=== PATIENT | male | born 1955 | race Caucasian/White ===

== ENCOUNTER 2020-05-09 11:08 | Emergency (ER) | payer MEDICARE, MEDICAID ==
[~2020-05-09] VITALS: Ht 175.3 cm; Wt 104.0 kg
[2020-05-09] MEDS ORDERED: FAMOTIDINE 20 MG/2 ML VIAL IVP ONE (11:30)
[2020-05-09] MEDS ORDERED: ONDANSETRON PF 4 MG/2 ML VIAL. IVP ONE (11:30)
[2020-05-09] MEDS ORDERED: MORPHINE SULFATE 2 MG/ML VIAL. IV/SQ PRN (11:30)
[2020-05-09 11:34] LABS: BASO # 0.1 x10^3/uL (0.0-0.2); BASO % 1 % (0-3); EOS # 0.3 x10^3/uL (0.0-0.7); EOS % 5 % (0-3); HEMATOCRIT 45.1 % (39.0-53.0); HEMOGLOBIN 15.5 g/dL (13.0-17.5); LYMPH # 2.5 x10^3/uL (1.0-4.8); LYMPH % 37 % (24-48); MEAN CORPUSCULAR HEMOGLOBIN 31 pg (25-35); MEAN CORPUSCULAR HGB CONC 34 g/dL (31-37); MEAN CORPUSCULAR VOLUME 89 fL (79-100); MONO # 0.9 x10^3/uL (0.0-1.1); MONO % 13 % (0-9); NEUT % 45 % (31-73); PLATELET COUNT 212 x10^3/uL (140-400); RED BLOOD COUNT 5.05 x10^6/uL (4.30-5.70); RED CELL DISTRIBUTION WIDTH 14.7 % (11.5-14.5); WHITE BLOOD COUNT 6.7 x10^3/uL (4.0-11.0)
[2020-05-09 11:50] LABS: CALCIUM 8.8 mg/dL (8.5-10.1); CREATININE 0.8 mg/dL (0.7-1.3); GFR 96.4; POTASSIUM 4.2 mmol/L (3.5-5.1)
[2020-05-09 11:57] LABS: ALBUMIN 3.2 g/dL (3.4-5.0); ALBUMIN/GLOBULIN RATIO 0.8 (1.0-1.7); MAGNESIUM 1.9 mg/dL (1.8-2.4); TOTAL BILIRUBIN 0.4 mg/dL (0.2-1.0)
[2020-05-09] MEDS ORDERED: IOHEXOL 300 MG/ML 100ML VIAL. IV ONE (12:00)
[2020-05-09] MEDS ORDERED: CONTRAST GIVEN. MC PRN (12:15)
--- NOTE | 2020-05-09 12:40 | RAD ---
ADDENDUM #1 Question kirkpatrick appear in this report due to a dictation system bug. Please disregard these characters . Electronically signed by: Bobby Shaw MD (05/11/2020 9:18 AM) [facility]PELVIS W History: Abdominal pain. Comparison: None. Technique: CT of the abdomen and pelvis with intravenous contrast. Findings: Lung bases: Bibasilar atelectasis. Heavy coronary artery calcification. General abdomen: No ascites. No free air. Liver : Diffuse hypodensity compatible with steatosis. No focal lesions. No masses seen. Gallbladder/Biliary Tree: Decompressed gallbladder. No intrahepatic or extrahepatic biliary ductal di latation. Pancreas: Mild fatty atrophy. Spleen: Normal in size and attenuation. Adrenal Glands: Normal. Genitourinary: No hydronephrosis or hydroureter.?No renal masses identified. Normal partially distend ed bladder contour. Gastrointestinal: Well distended stomach without focal abnormality. Unremarkable small bowel without obstruction. Normal appendix. Normal colon. Lymph nodes: No lymphadenopathy. Vessels: Aortoiliac atherosclerosis. Pelvic Organs: Mildly enlarged prostate. Soft tissues: Unremarkable. Bones: No acute or aggressive lesions. Impression: 1. No acute abdominopelvic findings. 2. Hepatic steatosis. 3. Coronary artery calcification. 4. Mildly enlarged prostate. ------ Exposure: One or more of the following individualized dose reduction techniques were utilized for thi s examination: 1. Automated exposure control 2. Adjustment of the mA and/or kV according to patient size 3. Use of iterative reconstruction technique. Electronically signed by: Bobby Shaw MD (05/09/2020 12:38 PM) [facility]
[2020-05-09 12:47] VITALS: BP 167/76
--- NOTE | 2020-05-09 13:31 | PHYS DOC ---
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 Communication is difficult especially in terms of rating the pain describing the pain E TC. Review of Systems: Review of Systems: Constitutional: Denies fever or chills. [] Eyes: Denies change in visual acuity. [] HENT: Denies nasal congestion or sore throat. [] Respiratory: Denies cough or shortness of breath. [] Cardiovascular: Denies chest pain or edema. [] GI: Reports right-sided abdominal pain, denies nausea, vomiting, bloody stools or diarrhea. [] : Denies dysuria. [] Musculoskeletal: Denies back pain or joint pain. [] Integument: Denies rash. [] Neurologic: Denies headache, focal weakness or sensory changes. [] Psychiatric: Denies depression or anxiety. [] Heart Score: C/O Chest Pain: No Risk Factors: Risk Factors: DM, Current or recent (<one month) smoker, HTN, HLP, family history of CAD, obesity. Risk Scores: Score 0 - 3: 2.5% MACE over next 6 weeks - Discharge Home Score 4 - 6: 20.3% MACE over next 6 weeks - Admit for Clinical Observation Score 7 - 10: 72.7% MACE over next 6 weeks - Early Invasive Strategies Current Medications: Current Medications Medications (Trade) Dose Ordered Sig/Ramy Start Time Stop Time Status Last Admin Dose Admin Famotidine (Pepcid Vial) 20 mg 1X ONCE 05/09/20 11:30 05/09/20 11:31 DC Info (CONTRAST GIVEN -- Rx MONITORING) 1 each PRN DAILY PRN 05/09/20 12:15 05/11/20 12:14 Iohexol (Omnipaque 300 Mg/ml) 75 ml 1X ONCE 05/09/20 12:00 05/09/20 12:03 DC 05/09/20 12:28 75 ML Morphine Sulfate (Morphine Sulfate) 2 mg PRN Q15MIN PRN 05/09/20 11:30 05/10/20 11:29 Ondansetron HCl (Zofran) 4 mg 1X ONCE 05/09/20 11:30 05/09/20 11:31 DC Allergies: Allergies: Allergies Coded Allergies Type Severity Reaction Last Updated Verified No Known Medication Allergies Allergy Unknown 05/09/20 Yes Penicillins Adverse Reaction Intermediate nausea, vomiting 05/09/20 Yes Physical Exam: PE: Constitutional: Well developed, well nourished, no acute distress, non-toxic appearance. [] HENT: Normocephalic, atraumatic, bilateral external ears normal, oropharynx moist, no oral exudates, nose normal. [] Eyes: PERRLA, EOMI, conjunctiva normal, no discharge. [] Neck: Normal range of motion, no tenderness, supple, no stridor. [] Cardiovascular:Heart rate regular rhythm, no murmur [] Lungs & Thorax: Bilateral breath sounds clear to auscultation [] Abdomen: Rounded abdomen. Bowel sounds normal, soft, no right upper quadrant tenderness, slight tenderness on the right lower quadrant and right mid abdomen, no masses, no pulsatile masses. [] Skin: Warm, dry, no erythema, no rash. [] Back: No tenderness, no CVA tenderness. [] Extremities: No tenderness, no cyanosis, no clubbing, ROM intact, no edema. [] Neurologic: Alert and oriented X 3, normal motor function, normal sensory function, no focal deficits noted. [] Psychologic: Affect normal, judgement normal, mood normal. [] Current Patient Data: Labs: Laboratory Tests Test 05/09/20 11:22 White Blood Count 6.7 x10^3/uL (4.0-11.0) Red Blood Count 5.05 x10^6/uL (4.30-5.70) Hemoglobin 15.5 g/dL (13.0-17.5) Hematocrit 45.1 % (39.0-53.0) Mean Corpuscular Volume 89 fL (79-100) Mean Corpuscular Hemoglobin 31 pg (25-35) Mean Corpuscular Hemoglobin Concent 34 g/dL (31-37) Red Cell Distribution Width 14.7 % (11.5-14.5) H Platelet Count 212 x10^3/uL (140-400) Neutrophils (%) (Auto) 45 % (31-73) Lymphocytes (%) (Auto) 37 % (24-48) Monocytes (%) (Auto) 13 % (0-9) H Eosinophils (%) (Auto) 5 % (0-3) H Basophils (%) (Auto) 1 % (0-3) Neutrophils # (Auto) 3.0 x10^3/uL (1.8-7.7) Lymphocytes # (Auto) 2.5 x10^3/uL (1.0-4.8) Monocytes # (Auto) 0.9 x10^3/uL (0.0-1.1) Eosinophils # (Auto) 0.3 x10^3/uL (0.0-0.7) Basophils # (Auto) 0.1 x10^3/uL (0.0-0.2) Sodium Level 142 mmol/L (136-145) Potassium Level 4.2 mmol/L (3.5-5.1) Chloride Level 104 mmol/L (98-107) Carbon Dioxide Level 28 mmol/L (21-32) Anion Gap 10 (6-14) Blood Urea Nitrogen 14 mg/dL (8-26) Creatinine 0.8 mg/dL (0.7-1.3) Estimated GFR (Cockcroft-Gault) 96.4 BUN/Creatinine Ratio 18 (6-20) Glucose Level 254 mg/dL (70-99) H Calcium Level 8.8 mg/dL (8.5-10.1) Magnesium Level 1.9 mg/dL (1.8-2.4) Total Bilirubin 0.4 mg/dL (0.2-1.0) Aspartate Amino Transferase (AST) 33 U/L (15-37) Alanine Aminotransferase (ALT) 57 U/L (16-63) Alkaline Phosphatase 97 U/L (46-116) Troponin I Quantitative < 0.017 ng/mL (0.000-0.055) JV-Art-Q-Type Natriuretic Peptide 35 pg/mL (0-124) Total Protein 7.0 g/dL (6.4-8.2) Albumin 3.2 g/dL (3.4-5.0) L Albumin/Globulin Ratio 0.8 (1.0-1.7) L Lipase 131 U/L (73-393) Thyroid Stimulating Hormone (TSH) 1.733 uIU/mL (0.358-3.74) Laboratory Tests 05/09/20 11:22 Laboratory Tests 05/09/20 11:22 Vital Signs: Vital Signs Date Time Temp Pulse Resp B/P (MAP) Pulse Ox O2 Delivery O2 Flow Rate FiO2 05/09/20 12:47 60 18 167/76 (106) 96 Room Air 05/09/20 11:08 97.5 97.5 EKG: EK Interpreted by Dr. Miranda sinus rhythm HR 64 no STEMI [] Radiology/Procedures: Radiology/Procedures: []PROCEDURE: CT ABD PELV W/ IV CONTRST ONLY CT ABDOMEN+PELVIS W History: Abdominal pain. Comparison: None. Technique: CT of the abdomen and pelvis with intravenous contrast. Findings: Lung bases: Bibasilar atelectasis. Heavy coronary artery calcification. General abdomen: No ascites. No free air. Liver : Diffuse hypodensity compatible with steatosis. No focal lesions. No masses seen. Gallbladder/Biliary Tree: Decompressed gallbladder. No intrahepatic or ext rahepatic biliary ductal dilatation. Pancreas: Mild fatty atrophy. Spleen: Normal in size and attenuation. Adrenal Glands: Normal. Genitourinary: No hydronephrosis or hydroureter.?No renal masses identified. Normal partially distended bladder contour. Gastrointestinal: Well distended stomach without focal abnormality. Unremarkable small bowel without obstruction. Normal appendix. Normal colon. Lymph nodes: No lymphadenopathy. Vessels: Aortoiliac atherosclerosis. Pelvic Organs: Mildly enlarged prostate. Soft tissues: Unremarkable. Bones: No acute or aggressive lesions. Impression: 1. No acute abdominopelvic findings. 2. Hepatic steatosis. 3. Coronary artery calcification. 4. Mildly enlarged prostate. ------ Exposure: One or more of the following individualized dose reduction techniques were utilized for this examination: 1. Automated exposure control 2. Adjustment of the mA and/or kV according to patient size 3. Use of iterative reconstruction technique. Electronically signed by: Bobby Kumar MD (05/09/2020 12:38 PM) [facility] DICTATED and SIGNED BY: BOBBY KUMAR MD DATE: 05/09/20 [id number] 0 Course & Med Decision Making: Course & Med Decision Making Pertinent Labs and Imaging studies reviewed. (See chart for details) This is a 65-year-old male patient presented to the ED today complaining of right sided abdominal pain. Patient has a history of CVA with right hemiplegia and expressive aphasia. CBC CMP with no acute findings. CT of the abdomen and pelvic is negative for any acute findings. UA is negative. Discharge back to the group home. Dragon Disclaimer: Dragon Disclaimer: This electronic medical record was generated, in whole or in part, using a voice recognition dictation system. Departure Departure Impression: Primary Impression: Abdominal pain Qualified Codes: R10.31 - Right lower quadrant pain Disposition: 01 DC HOME SELF CARE/HOMELESS Condition: STABLE Referrals: ADIS ZAVALA MD (PCP) follow up next week Patient Instructions: Abdominal Pain Additional Instructions: You were seen for abdominal pain. Your work-up in the emergency room including lab work, urine, CAT scan are negative for any acute findings. Please follow-up with your primary care doctor MICKEY KAM APRN May 09, 2020 13:31
[2020-05-09 14:50] LABS: BILIRUBIN,URINE NEGATIVE (NEG); CLARITY,URINE CLEAR; COLOR,URINE YELLOW; NITRITE,URINE NEGATIVE (NEG); PH,URINE 6.5 (<5.0-8.0); PROTEIN,URINE NEGATIVE (NEG-TRACE)
[2020-05-09 15:09] LABS: BACTERIA,URINE 0 /HPF (0-FEW); RBC,URINE OCC /HPF (0-2); WBC,URINE OCC /HPF (0-4)
== END 2020-05-09 18:48 | disposition home or self-care (01) ==
LOC: ER 11:08
DX: R10.31 Right lower quadrant pain (principal); K76.0 Fatty (change of) liver, not elsewhere classified; N40.0 Benign prostatic hyperplasia without lower urinary tract symptoms; E78.00 Pure hypercholesterolemia, unspecified; I10 Essential (primary) hypertension; Z86.73 Personal history of transient ischemic attack (TIA), and cerebral infarction without residual deficits; Z88.0 Allergy status to penicillin
CPT/HCPCS: 36415; 74177; 80053; 81001; 83690; 83735; 83880; 84443; 84484; 85025; 93005; 99285; Q9967

== ENCOUNTER 2020-07-26 09:29 | Inpatient (IN) | payer MEDICARE, OTHER ==
[~2020-07-26] VITALS: Ht 182.9 cm; Wt 96.0 kg
[~2020-07-26 09:29] MED LIST: ACET650S19 PO; AMOX1TAB11 PO; ASPI81TA59 PO; ATOR40TA59 PO; BACL20TA PO; FLUO40CA9 PO; GABA-689 PO; GABA300C18 PO; IPRA3AMP29 NEB; LACT1CAP19 PO; MAG30ORA2 PO; MAGN400O7 PO; OLAN5TAB7 PO; POLY17PO29 PO; PREG-9 PO; RIVA10TA PO; SENN1TAB99 PO
--- NOTE | 2020-07-26 09:39 | ED.ADGEN ---
Past Medical History Past Medical History: CVA, Depression, High Cholesterol, Hypertension, Other Additional Past Medical Histor: RT hemiparesis, aphasia, PE, malnutrition, weakness, abd tenderness Past Surgical History: No Surgical History Smoking Status: Former Smoker Alcohol Use: None General Adult HPI: HPI: Patient is a 65 year old male brought in from [facility] for decreased mental status. History provided by EMS reports that patient has been altered since they first saw him this morning. Says he normally is more awake and alert. He was reportedly with 80% O2 saturation but normally wears 3 L nasal cannula unsure if he was wearing nasal cannula at time but on EMS arrival he was satting in the mid 90s on his 3 L. Patient complaining of abdominal pain. Review of Systems: Review of Systems: All other systems within normal limits except for as noted in the HPI Current Medications: Current Medications Medications (Trade) Dose Ordered Sig/Ramy Start Time Stop Time Status Last Admin Dose Admin Sodium Chloride 1,000 ml @ 1,000 mls/hr 1X ONCE 07/26/20 11:00 07/26/20 11:59 DC 07/26/20 11:00 1,000 MLS/HR Allergies: Allergies: Allergies Coded Allergies Type Severity Reaction Last Updated Verified No Known Medication Allergies Allergy Unknown 05/09/20 Yes Penicillins Adverse Reaction Intermediate nausea, vomiting 05/09/20 Yes Physical Exam: PE: Constitutional: Well developed, well nourished, no acute distress, non-toxic appearance. [] HENT: Normocephalic, atraumatic, bilateral external ears normal, nose normal. [] Eyes: PERRLA, conjunctiva normal, no discharge. [] Neck: No rigidity, supple, no stridor. [] Cardiovascular: Regular rate and rhythm, brisk cap refill [] Lungs & Thorax: Non labored symmetric respirations, no tachypnea or respiratory distress [] Abdomen: Soft, moderate distention, tenderness and guarding to palpation generalized Skin: Warm, dry, no erythema, no rash. [] Back: Unremarkable Extremities: No deformities, range of motion grossly intact, no lower extremity edema [] Neurologic: Alert and oriented X 1, no focal deficits noted. [] Psychologic: Affect normal, judgement normal, mood normal. [] Current Patient Data: Labs: Laboratory Tests Test 07/26/20 09:45 07/26/20 10:23 07/26/20 11:10 White Blood Count 8.0 x10^3/uL (4.0-11.0) Red Blood Count 5.04 x10^6/uL (4.30-5.70) Hemoglobin 15.2 g/dL (13.0-17.5) Hematocrit 44.4 % (39.0-53.0) Mean Corpuscular Volume 88 fL (79-100) Mean Corpuscular Hemoglobin 30 pg (25-35) Mean Corpuscular Hemoglobin Concent 34 g/dL (31-37) Red Cell Distribution Width 14.7 % (11.5-14.5) H Platelet Count 186 x10^3/uL (140-400) Neutrophils (%) (Auto) 72 % (31-73) Lymphocytes (%) (Auto) 13 % (24-48) L Monocytes (%) (Auto) 13 % (0-9) H Eosinophils (%) (Auto) 2 % (0-3) Basophils (%) (Auto) 0 % (0-3) Neutrophils # (Auto) 5.7 x10^3/uL (1.8-7.7) Lymphocytes # (Auto) 1.1 x10^3/uL (1.0-4.8) Monocytes # (Auto) 1.0 x10^3/uL (0.0-1.1) Eosinophils # (Auto) 0.1 x10^3/uL (0.0-0.7) Basophils # (Auto) 0.0 x10^3/uL (0.0-0.2) Sodium Level 137 mmol/L (136-145) Potassium Level 4.3 mmol/L (3.5-5.1) Chloride Level 101 mmol/L (98-107) Carbon Dioxide Level 23 mmol/L (21-32) Anion Gap 13 (6-14) Blood Urea Nitrogen 61 mg/dL (8-26) H Creatinine 2.4 mg/dL (0.7-1.3) H Estimated GFR (Cockcroft-Gault) 27.1 BUN/Creatinine Ratio 25 (6-20) H Glucose Level 218 mg/dL (70-99) H Lactic Acid Level 1.0 mmol/L (0.4-2.0) Calcium Level 8.6 mg/dL (8.5-10.1) Magnesium Level 2.7 mg/dL (1.8-2.4) H Total Bilirubin 0.4 mg/dL (0.2-1.0) Aspartate Amino Transferase (AST) 32 U/L (15-37) Alanine Aminotransferase (ALT) 57 U/L (16-63) Alkaline Phosphatase 77 U/L (46-116) Ammonia 14 mcmol/L (11-34) Troponin I Quantitative < 0.017 ng/mL (0.000-0.055) PF-Rgu-X-Type Natriuretic Peptide 95 pg/mL (0-124) Total Protein 7.5 g/dL (6.4-8.2) Albumin 3.1 g/dL (3.4-5.0) L Albumin/Globulin Ratio 0.7 (1.0-1.7) L O2 Saturation 92 % (92-99) Arterial Blood pH 7.39 (7.35-7.45) Arterial Blood pCO2 at Patient Temp 34 mmHg (35-46) L Arterial Blood pO2 at Patient Temp 62 mmHg (65-108) L Arterial Blood HCO3 20 mmol/L (21-28) L Arterial Blood Base Excess -4 mmol/L (-3-3) L FiO2 32%/3lnc Urine Collection Type U cath Urine Color Yellow Urine Clarity Clear Urine pH 5.5 (<5.0-8.0) Urine Specific [place] 1.015 (1.000-1.030) Urine Protein 30 mg/dL (NEG-TRACE) Urine Glucose (UA) Negative mg/dL (NEG) Urine Ketones (Stick) Negative mg/dL (NEG) Urine Blood Negative (NEG) Urine Nitrite Negative (NEG) Urine Bilirubin Negative (NEG) Urine Urobilinogen Dipstick 0.2 mg/dL (0.2 mg/dL) Urine Leukocyte Esterase Negative (NEG) Urine RBC Occ /HPF (0-2) Urine WBC 5-10 /HPF (0-4) Urine Bacteria Few /HPF (0-FEW) Urine Hyaline Casts Moderate /HPF Urine Yeast Present /HPF Laboratory Tests 07/26/20 09:45 Laboratory Tests 07/26/20 09:45 Vital Signs: Vital Signs Date Time Temp Pulse Resp B/P (MAP) Pulse Ox O2 Delivery O2 Flow Rate FiO2 07/26/20 12:13 56 20 112/54 (73) Room Air 07/26/20 11:06 95 07/26/20 09:56 97.5 97.5 EKG: EKG: Sinus rhythm, heart 50s beats per minute, PACs deviation, no ST elevation or depression, no ectopy, normal intervals. [] Heart Score: C/O Chest Pain: No Risk Factors: Risk Factors: DM, Current or recent (<one month) smoker, HTN, HLP, family history of CAD, obesity. Risk Scores: Score 0 - 3: 2.5% MACE over next 6 weeks - Discharge Home Score 4 - 6: 20.3% MACE over next 6 weeks - Admit for Clinical Observation Score 7 - 10: 72.7% MACE over next 6 weeks - Early Invasive Strategies Radiology/Procedures: Radiology/Procedures: [place] [address] IMAGING REPORT Signed PATIENT: GRISELDA ABDALLA ACCOUNT: [id number] : 1955 LOCATION: ER AGE: 65 SEX: M EXAM STATUS: PRE ER ORD. PHYSICIAN: ALANA MANDUJANO MD REASON: hypoxia PROCEDURE: CHEST AP ONLY Exam Date: 07/26/2020 9:44 AM XR CHEST 1V Indication: Reason: hypoxia / Spl. Instructions: / History: . Comparison: July 01, 2020 FINDINGS/ IMPRESSION: The aorta is calcified. Prominent interstitial markings are again seen bilaterally, nonspecific and not significant changed since the prior exam. Left upper lobe scarring is noted. Left basilar atelectasis and/or scarring persists. The cardiac silhouette is unchanged. There is no appreciable pleural effusion or pneumothorax. Electronically signed by: Francia Vieyra MD (07/26/2020 10:02 AM) [id number] DICTATED and SIGNED BY: FRANCIA VIEYRA MD DATE: 07/26/20 [id number] 0 [][address] [id number] IMAGING REPORT Signed PATIENT: GRISELDA ABDALLA ACCOUNT: [id number] : 1955 LOCATION: ER AGE: 65 SEX: M EXAM STATUS: REG ER ORD. PHYSICIAN: ALANA MANDUJANO MD REASON: ams PROCEDURE: CT HEAD WO CONTRAST INDICATION: Reason: ams / Spl. Instructions: / History: . COMPARISON: None. TECHNIQUE: Axial CT images obtained through the head. One or more of the following individualized dose reduction techniques were utilized for this examination: 1. Automated exposure control; 2. Adjustment of the mA and/or kV according to patient size; 3. Use of iterative reconstruction technique. FINDINGS: There is a large region of low density within the left cerebral hemisphere at the MCA territory with volume loss at this site and expected dilatation of the left lateral ventricle. This can be seen with prior left middle cerebral artery infarct. There is some probable mild calcification seen at the region of prior infarct. M ultiple regions of low density within the white matter. No definite acute intracranial hemorrhage. IMPRESSION: * Large region of encephalomalacia within the left cerebral hemisphere with ex vacuo dilatation of the left lateral ventricle. This could be secondary to large infarct in the left middle cerebral artery territory with a chronic appearance. There is also some calcifications in the area. * Scattered regions of low density within the white matter. Nonspecific but can be seen with small vessel ischemic disease. If there is high concern for acute causes clinically MRI could better assess acuity. Electronically signed by: Maite Rey MD (07/26/2020 10:51 AM) [id number] DICTATED and SIGNED BY: MAITE REY MD DATE: 07/26/20 [id number] [facility] [address] [place], [place] [id number] IMAGING REPORT Signed PATIENT: GRISELDA ABDALLA ACCOUNT: [id number] : 1955 LOCATION: ER AGE: 65 SEX: M EXAM STATUS: REG ER ORD. PHYSICIAN: ALANA MANDUJANO MD REASON: pain, distention PROCEDURE: CT ABDOMEN PELVIS WO CONTRAST CT of the abdomen and pelvis without contrast. 07/26/2020 11:02 AM Indication: Reason: pain, distention / Spl. Instructions: / History: Comparison Study: Abdominal CT May 09, 2020 Technique: Multidetector CT imaging of the abdomen pelvis is obtained without administration of contrast. Findings: Visualized lung bases demonstrate atelectasis. Hepatic steatosis again noted. Liver is otherwise unremarkable. Spleen is unremarkable. Adrenal glands are unremarkable. Pancreas is somewhat atrophic but otherwise unremarkable. Kidneys demonstrate nonspecific perinephric stranding which is mild. No hydronephrosis or nephrolithiasis is seen. The ureters are normal in course and caliber. The bladder is grossly unremarkable. No bowel obstruction is seen. There is mild inflammatory change surrounding the duodenum, new from comparison study. Lack of IV or enteric contrast limits evaluation. Areas of duodenal wall thickening could be present. The appendix is unremarkable. No free fluid or free air is seen in the abdomen or pelvis. Diffuse atherosclerotic vascular disease is noted. No acute osseous changes are seen. IMPRESSION: 1. Interval development of mild periduodenal inflammatory change and possible wall thickening. Evaluation is somewhat limited given technique. Findings could reflect duodenitis . 2. Hepatic steatosis CT DOSING PQRS STATEMENT: One or more of the following individualized dose reduction techniques were utilized for this examination: 1. Automated exposure control 2. Adjustment of the mA and/or kV according to patient size 3. Use of iterative reconstruction technique Electronically signed by: Jewel Salazar MD (07/26/2020 12:24 PM) [id number] DICTATED and SIGNED BY: JEWEL SALAZAR MD DATE: 07/26/20 [id number] Course & Med Decision Making: Course & Med Decision Making Pertinent Labs and Imaging studies reviewed. (See chart for details) [] Dragon Disclaimer: Dragon Disclaimer: This electronic medical record was generated, in whole or in part, using a voice recognition dictation system. Departure Departure Impression: Primary Impression: AMS (altered mental status) Additional Impression: Dehydration Disposition: ADMITTED INPATIENT Admitting Physician: HIMS Condition: STABLE Referrals: ADIS ZAVALA MD (PCP) Problem Qualifiers ALANA MANDUJANO MD Jul 26, 2020 09:39
[2020-07-26 10:04] LABS: BASO % 0 % (0-3); EOS # 0.1 x10^3/uL (0.0-0.7); EOS % 2 % (0-3); HEMATOCRIT 44.4 % (39.0-53.0); HEMOGLOBIN 15.2 g/dL (13.0-17.5); LYMPH # 1.1 x10^3/uL (1.0-4.8); LYMPH % 13 % (24-48); MEAN CORPUSCULAR HEMOGLOBIN 30 pg (25-35); MEAN CORPUSCULAR HGB CONC 34 g/dL (31-37); MEAN CORPUSCULAR VOLUME 88 fL (79-100); MONO % 13 % (0-9); NEUT # 5.7 x10^3/uL (1.8-7.7); NEUT % 72 % (31-73); PLATELET COUNT 186 x10^3/uL (140-400); RED BLOOD COUNT 5.04 x10^6/uL (4.30-5.70); RED CELL DISTRIBUTION WIDTH 14.7 % (11.5-14.5)
--- NOTE | 2020-07-26 10:05 | RAD ---
Exam Date: 07/26/2020 9:44 AM XR CHEST 1V Indication: Reason: hypoxia / Spl. Instructions: / History: . Comparison: July 01, 2020 FINDINGS/ IMPRESSION: The aorta is calcified. Prominent interstitial markings are again seen bilaterally, nonspecific and n ot significant changed since the prior exam. Left upper lobe scarring is noted. Left basilar atelecta sis and/or scarring persists. The cardiac silhouette is unchanged. There is no appreciable pleural effusion or pneumothorax. Electronically signed by: Orlando Vieyra MD (07/26/2020 10:02 AM) [id number]
[2020-07-26 10:24] LABS: BASE EXCESS ABG -4 mmol/L (-3-3); HCO3 ABG 20 mmol/L (21-28); PCO2 ABG 34 mmHg (35-46); PO2 ABG 62 mmHg (65-108); SAT O2 ABG 92 % (92-99)
[2020-07-26 10:25] LABS: FIO2 ABG 32%/3LNC
[2020-07-26 10:28] LABS: CALCIUM 8.6 mg/dL (8.5-10.1); CREATININE 2.4 mg/dL (0.7-1.3); GFR 27.1; POTASSIUM 4.3 mmol/L (3.5-5.1)
[2020-07-26 10:33] LABS: ALBUMIN 3.1 g/dL (3.4-5.0); ALBUMIN/GLOBULIN RATIO 0.7 (1.0-1.7); MAGNESIUM 2.7 mg/dL (1.8-2.4); TOTAL BILIRUBIN 0.4 mg/dL (0.2-1.0); TOTAL PROTEIN 7.5 g/dL (6.4-8.2)
--- NOTE | 2020-07-26 10:53 | RAD ---
INDICATION: Reason: ams / Spl. Instructions: / History: . COMPARISON: None. TECHNIQUE: Axial CT images obtained through the head. One or more of the following individualized dose reduction techniques were utilized for this examinat ion: 1. Automated exposure control; 2. Adjustment of the mA and/or kV according to patient size; 3 . Use of iterative reconstruction technique. FINDINGS: There is a large region of low density within the left cerebral hemisphere at the MCA territory with volume loss at this site and expected dilatation of the left lateral ventricle. This can be seen with prior left middle cerebral artery infarct. There is some probable mild calcification seen at the region of prior infarct. Multiple regions of lo w density within the white matter. No definite acute intracranial hemorrhage. IMPRESSION: * Large region of encephalomalacia within the left cerebral hemisphere with ex vacuo dilatation of t he left lateral ventricle. This could be secondary to large infarct in the left middle cerebral arter y territory with a chronic appearance. There is also some calcifications in the area. * Scattered regions of low density within the white matter. Nonspecific but can be seen with small v essel ischemic disease. If there is high concern for acute causes clinically MRI could better assess acuity. Electronically signed by: Rj Pa MD (07/26/2020 10:51 AM) [id number]
[2020-07-26] MEDS ORDERED: IV NORMAL SALINE 1000ML BAG 1,000 ML IV ONE (11:00)
[2020-07-26 11:19] LABS: BILIRUBIN,URINE NEGATIVE (NEG); CLARITY,URINE CLEAR; COLOR,URINE YELLOW; NITRITE,URINE NEGATIVE (NEG); PH,URINE 5.5 (<5.0-8.0); PROTEIN,URINE 30 mg/dL (NEG-TRACE); UROBILINOGEN,URINE 0.2 mg/dL (0.2 mg/dL)
[2020-07-26 11:29] LABS: BACTERIA,URINE FEW /HPF (0-FEW); HYALINE CASTS, URINE MODERATE /HPF; RBC,URINE OCC /HPF (0-2); YEAST,URINE PRESENT /HPF
--- NOTE | 2020-07-26 12:27 | RAD ---
CT of the abdomen and pelvis without contrast. 07/26/2020 11:02 AM Indication: Reason: pain, distention / Spl. Instructions: / History: Comparison Study: Abdominal CT May 09, 2020 Technique: Multidetector CT imaging of the abdomen pelvis is obtained without administration of contr ast. Findings: Visualized lung bases demonstrate atelectasis. Hepatic steatosis again noted. Liver is otherwise unre markable. Spleen is unremarkable. Adrenal glands are unremarkable. Pancreas is somewhat atrophic but otherwise unremarkable. Kidneys demonstrate nonspecific perinephric stranding which is mild. No hydronephrosis or nephrolithi asis is seen. The ureters are normal in course and caliber. The bladder is grossly unremarkable. No bowel obstruction is seen. There is mild inflammatory change surrounding the duodenum, new from co mparison study. Lack of IV or enteric contrast limits evaluation. Areas of duodenal wall thickening c ould be present. The appendix is unremarkable. No free fluid or free air is seen in the abdomen or pelvis. Diffuse at herosclerotic vascular disease is noted. No acute osseous changes are seen. IMPRESSION: 1. Interval development of mild periduodenal inflammatory change and possible wall thickening. Evalua tion is somewhat limited given technique. Findings could reflect duodenitis . 2. Hepatic steatosis CT DOSING PQRS STATEMENT: One or more of the following individualized dose reduction techniques were utilized for this examinat ion: 1. Automated exposure control 2. Adjustment of the mA and/or kV according to patient size 3. Use of iterative reconstruction technique Electronically signed by: Jewel Hooper MD (07/26/2020 12:24 PM) [id number]
[2020-07-26] MEDS ORDERED: ACETAMINOPHEN 325 MG TABLET. PO PRN (13:15)
[2020-07-26] MEDS ORDERED: ONDANSETRON PF 4 MG/2 ML VIAL. IV PRN (13:15)
[2020-07-26 15:30] VITALS: BP 125/56
--- NOTE | 2020-07-26 16:07 | PDOC1 ---
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 History was provided by chart review. Patient was noted to be altered from his baseline this morning. He was reportedly more lethargic today from his normal awake and alert self. Upon arrival in the ED patient was complaining of abdominal pain. CT abdomen pelvis showed mild periduodenal inflammatory change and possible wall thickening, findings that could suggest duodenitis . Labs on admission showed BUN 61, creatinine 2.5, glucose 218, albumin 3.1. Labs upon most recent admission showed creatinine 0.7 on 07/01/2020. Further history cannot be obtained at this time due to clinical condition. Will admit patient for further medical management. Past Medical History Past Medical History CVA, right hemiparesis, aphasia, history PE, depression, HLD, HTN Past Surgical History Past Surgical History Reviewed with patient what unable to obtain due to clinical condition Past Surgical History: No pertinent history Family History Family History Reviewed with patient what unable to obtain due to clinical condition Social History Smoke: Quit ALCOHOL: none Drugs: None Current Problem List Problem List Problems Medical Problems: (1) SOL (acute kidney injury) Status: Acute Current Medications Current Medications Current Medications Sodium Chloride 1,000 ml @ 1,000 mls/hr 1X ONCE IV Last administered on 07/26/20at 11:00; Start 07/26/20 at 11:00; Stop 07/26/20 at 11:59; Status DC Ondansetron HCl (Zofran) 4 mg PRN Q8HRS PRN IV NAUSEA/VOMITING; Start 07/26/20 at 13:15; Stop 07/27/20 at 13:14 Morphine Sulfate (Morphine Sulfate) 2 mg PRN Q2HR PRN IV PAIN; Start 07/26/20 at 13:15; Stop 07/27/20 at 13:14 Sodium Chloride 1,000 ml @ 100 mls/hr Q10H IV ; Start 07/26/20 at 13:15; Stop 07/27/20 at 13:14 Acetaminophen (Tylenol) 650 mg PRN Q4HRS PRN PO FEVER > 100.3'F; Start 07/26/20 at 13:15; Stop 07/27/20 at 13:14 Active Scripts Active Culturelle (Lactobacillus Rhamnosus Gg) 1 Each Cap.sprink 1 Cap PO BID 30 Days Mag-Al Plus Xs Suspension (Mag Hydrox/Al Hydrox/Simeth) 30 Ml Oral.susp 30 Ml PO PRN Q3HRS PRN 14 Days Olanzapine Odt (Olanzapine) 5 Mg Tab.rapdis 5 Mg PO PRN BID PRN 14 Days Duoneb 0.5-3(2.5) Mg/3 Ml (Albuterol/Ipratropium) 3 Ml Ampul.neb 3 Ml NEB RTQID 30 Days Amox Tr-K Clv 875-125 Mg Tab (Amoxicillin/Potassium Clav) 1 Each Tablet 1 Tab PO BID 10 Days Reported Neurontin (Gabapentin) 300 Mg Capsule 600 Mg PO TID Xarelto (Rivaroxaban) 10 Mg Tablet 10 Mg PO DAILY Senna-Docusate Sodium Tablet (Sennosides/Docusate Sodium) 1 Each Tablet 2 Tab PO QHS Prozac (Fluoxetine Hcl) 40 Mg Capsule 40 Mg PO DAILY Lyrica (Pregabalin) 75 Mg Capsule 75 Mg PO BID Miralax (Polyethylene Glycol 3350) 17 Gm Powd.pack 1 Packet PO DAILY 2 Days dissolve in water Milk Of Magnesia (Magnesium Hydroxide) 400 Mg/5 Ml Oral.susp 400 Mg PO DAILY PRN Atorvastatin Calcium 40 Mg Tablet 40 Mg PO HS Baclofen 20 Mg Tablet 20 Mg PO TID Children's Aspirin (Aspirin) 81 Mg Tab.chew 81 Mg PO DAILY Acetaminophen 650 Mg/20.3 Ml Solution 650 Mg PO Q4HRS PRN Allergies Allergies: Coded Allergies: No Known Medication Allergies (Verified Allergy, Unknown, 05/09/20) Penicillins (Verified Adverse Reaction, Intermediate, nausea, vomiting, 05/09/20) ROS Review of System Reviewed with patient but unable to obtain due to clinical condition Vitals Vitals Vital Signs Date Time Temp Pulse Resp B/P (MAP) Pulse Ox O2 Delivery O2 Flow Rate FiO2 07/26/20 15:30 97.2 61 17 125/56 (79) 95 Room Air 97.2 Labs Labs Laboratory Tests Test 07/26/20 09:45 07/26/20 10:07/26/20 11:10 White Blood Count 8.0 x10^3/uL (4.0-11.0) Red Blood Count 5.04 x10^6/uL (4.30-5.70) Hemoglobin 15.2 g/dL (13.0-17.5) Hematocrit 44.4 % (39.0-53.0) Mean Corpuscular Volume 88 fL (79-100) Mean Corpuscular Hemoglobin 30 pg (25-35) Mean Corpuscular Hemoglobin Concent 34 g/dL (31-37) Red Cell Distribution Width 14.7 % (11.5-14.5) Platelet Count 186 x10^3/uL (140-400) Neutrophils (%) (Auto) 72 % (31-73) Lymphocytes (%) (Auto) 13 % (24-48) Monocytes (%) (Auto) 13 % (0-9) Eosinophils (%) (Auto) 2 % (0-3) Basophils (%) (Auto) 0 % (0-3) Neutrophils # (Auto) 5.7 x10^3/uL (1.8-7.7) Lymphocytes # (Auto) 1.1 x10^3/uL (1.0-4.8) Monocytes # (Auto) 1.0 x10^3/uL (0.0-1.1) Eosinophils # (Auto) 0.1 x10^3/uL (0.0-0.7) Basophils # (Auto) 0.0 x10^3/uL (0.0-0.2) Sodium Level 137 mmol/L (136-145) Potassium Level 4.3 mmol/L (3.5-5.1) Chloride Level 101 mmol/L (98-107) Carbon Dioxide Level 23 mmol/L (21-32) Anion Gap 13 (6-14) Blood Urea Nitrogen 61 mg/dL (8-26) Creatinine 2.4 mg/dL (0.7-1.3) Estimated GFR (Cockcroft-Gault) 27.1 BUN/Creatinine Ratio 25 (6-20) Glucose Level 218 mg/dL (70-99) Lactic Acid Level 1.0 mmol/L (0.4-2.0) Calcium Level 8.6 mg/dL (8.5-10.1) Magnesium Level 2.7 mg/dL (1.8-2.4) Total Bilirubin 0.4 mg/dL (0.2-1.0) Aspartate Amino Transf (AST/SGOT) 32 U/L (15-37) Alanine Aminotransferase (ALT/SGPT) 57 U/L (16-63) Alkaline Phosphatase 77 U/L (46-116) Ammonia 14 mcmol/L (11-34) Troponin I Quantitative < 0.017 ng/mL (0.000-0.055) XJ-Zad-C-Type Natriuretic Peptide 95 pg/mL (0-124) Total Protein 7.5 g/dL (6.4-8.2) Albumin 3.1 g/dL (3.4-5.0) Albumin/Globulin Ratio 0.7 (1.0-1.7) O2 Saturation 92 % (92-99) Arterial Blood pH 7.39 (7.35-7.45) Arterial Blood pCO2 at Patient Temp 34 mmHg (35-46) Arterial Blood pO2 at Patient Temp 62 mmHg (65-108) Arterial Blood HCO3 20 mmol/L (21-28) Arterial Blood Base Excess -4 mmol/L (-3-3) FiO2 32%/3lnc Urine Collection Type U cath Urine Color Yellow Urine Clarity Clear Urine pH 5.5 (<5.0-8.0) Urine Specific Energy 1.015 (1.000-1.030) Urine Protein 30 mg/dL (NEG-TRACE) Urine Glucose (UA) Negative mg/dL (NEG) Urine Ketones (Stick) Negative mg/dL (NEG) Urine Blood Negative (NEG) Urine Nitrite Negative (NEG) Urine Bilirubin Negative (NEG) Urine Urobilinogen Dipstick 0.2 mg/dL (0.2 mg/dL) Urine Leukocyte Esterase Negative (NEG) Urine RBC Occ /HPF (0-2) Urine WBC 5-10 /HPF (0-4) Urine Bacteria Few /HPF (0-FEW) Urine Hyaline Casts Moderate /HPF Urine Yeast Present /HPF Laboratory Tests Test 07/26/20 09:45 07/26/20 10:23 07/26/20 11:10 White Blood Count 8.0 x10^3/uL (4.0-11.0) Red Blood Count 5.04 x10^6/uL (4.30-5.70) Hemoglobin 15.2 g/dL (13.0-17.5) Hematocrit 44.4 % (39.0-53.0) Mean Corpuscular Volume 88 fL (79-100) Mean Corpuscular Hemoglobin 30 pg (25-35) Mean Corpuscular Hemoglobin Concent 34 g/dL (31-37) Red Cell Distribution Width 14.7 % (11.5-14.5) Platelet Count 186 x10^3/uL (140-400) Neutrophils (%) (Auto) 72 % (31-73) Lymphocytes (%) (Auto) 13 % (24-48) Monocytes (%) (Auto) 13 % (0-9) Eosinophils (%) (Auto) 2 % (0-3) Basophils (%) (Auto) 0 % (0-3) Neutrophils # (Auto) 5.7 x10^3/uL (1.8-7.7) Lymphocytes # (Auto) 1.1 x10^3/uL (1.0-4.8) Monocytes # (Auto) 1.0 x10^3/uL (0.0-1.1) Eosinophils # (Auto) 0.1 x10^3/uL (0.0-0.7) Basophils # (Auto) 0.0 x10^3/uL (0.0-0.2) Sodium Level 137 mmol/L (136-145) Potassium Level 4.3 mmol/L (3.5-5.1) Chloride Level 101 mmol/L (98-107) Carbon Dioxide Level 23 mmol/L (21-32) Anion Gap 13 (6-14) Blood Urea Nitrogen 61 mg/dL (8-26) Creatinine 2.4 mg/dL (0.7-1.3) Estimated GFR (Cockcroft-Gault) 27.1 BUN/Creatinine Ratio 25 (6-20) Glucose Level 218 mg/dL (70-99) Lactic Acid Level 1.0 mmol/L (0.4-2.0) Calcium Level 8.6 mg/dL (8.5-10.1) Magnesium Level 2.7 mg/dL (1.8-2.4) Total Bilirubin 0.4 mg/dL (0.2-1.0) Aspartate Amino Transf (AST/SGOT) 32 U/L (15-37) Alanine Aminotransferase (ALT/SGPT) 57 U/L (16-63) Alkaline Phosphatase 77 U/L (46-116) Ammonia 14 mcmol/L (11-34) Troponin I Quantitative < 0.017 ng/mL (0.000-0.055) LD-Tdw-O-Type Natriuretic Peptide 95 pg/mL (0-124) Total Protein 7.5 g/dL (6.4-8.2) Albumin 3.1 g/dL (3.4-5.0) Albumin/Globulin Ratio 0.7 (1.0-1.7) O2 Saturation 92 % (92-99) Arterial Blood pH 7.39 (7.35-7.45) Arterial Blood pCO2 at Patient Temp 34 mmHg (35-46) Arterial Blood pO2 at Patient Temp 62 mmHg (65-108) Arterial Blood HCO3 20 mmol/L (21-28) Arterial Blood Base Excess -4 mmol/L (-3-3) FiO2 32%/3lnc Urine Collection Type U cath Urine Color Yellow Urine Clarity Clear Urine pH 5.5 (<5.0-8.0) Urine Specific Energy 1.015 (1.000-1.030) Urine Protein 30 mg/dL (NEG-TRACE) Urine Glucose (UA) Negative mg/dL (NEG) Urine Ketones (Stick) Negative mg/dL (NEG) Urine Blood Negative (NEG) Urine Nitrite Negative (NEG) Urine Bilirubin Negative (NEG) Urine Urobilinogen Dipstick 0.2 mg/dL (0.2 mg/dL) Urine Leukocyte Esterase Negative (NEG) Urine RBC Occ /HPF (0-2) Urine WBC 5-10 /HPF (0-4) Urine Bacteria Few /HPF (0-FEW) Urine Hyaline Casts Moderate /HPF Urine Yeast Present /HPF Images Images CHEST AP ONLY Exam Date: 07/26/2020 9:44 AM XR CHEST 1V Indication: Reason: hypoxia / Spl. Instructions: / History: . Comparison: July 01, 2020 FINDINGS/ IMPRESSION: The aorta is calcified. Prominent interstitial markings are again seen bilaterally, nonspecific and not significant changed since the prior exam. Left upper lobe scarring is noted. Left basilar atelectasis and/or scarring persists. The cardiac silhouette is unchanged. There is no appreciable pleural effusion or pneumothorax. CT HEAD WO CONTRAST INDICATION: Reason: ams / Spl. Instructions: / History: . COMPARISON: None. TECHNIQUE: Axial CT images obtained through the head. One or more of the following individualized dose reduction techniques were utilized for this examination: 1. Automated exposure control; 2. Adjustment of the mA and/or kV according to patient size; 3. Use of iterative reconstruction technique. FINDINGS: There is a large region of low density within the left cerebral hemisphere at the MCA territory with volume loss at this site and expected dilatation of the left lateral ventricle. This can be seen with prior left middle cerebral artery infarct. There is some probable mild calcification seen at the region of prior infarct. Multiple regions of low density within the white matter. No definite acute intracranial hemorrhage. IMPRESSION: * Large region of encephalomalacia within the left cerebral hemisphere with ex vacuo dilatation of the left lateral ventricle. This could be secondary to large infarct in the left middle cerebral artery territory with a chronic appearance. There is also some calcifications in the area. * Scattered regions of low density within the white matter. Nonspecific but can be seen with small vessel ischemic disease. If there is high concern for acute causes clinically MRI could better assess acuity. CT ABDOMEN PELVIS WO CONTRAST CT of the abdomen and pelvis without contrast. 07/26/2020 11:02 AM Indication: Reason: pain, distention / Spl. Instructions: / History: Comparison Study: Abdominal CT May 09, 2020 Technique: Multidetector CT imaging of the abdomen pelvis is obtained without administration of contrast. Findings: Visualized lung bases demonstrate atelectasis. Hepatic steatosis again noted. Liver is otherwise unremarkable. Spleen is unremarkable. Adrenal glands are unremarkable. Pancreas is somewhat atrophic but otherwise unremarkable. Kidneys demonstrate nonspecific perinephric stranding which is mild. No hydronephrosis or nephrolithiasis is seen. The ureters are normal in course and caliber. The bladder is grossly unremarkable. No bowel obstruction is seen. There is mild inflammatory change surrounding the duodenum, new from comparison study. Lack of IV or enteric contrast limits evaluation. Areas of duodenal wall thickening could be present. The appendix is unremarkable. No free fluid or free air is seen in the abdomen or pelvis. Diffuse atherosclerotic vascular disease is noted. No acute osseous changes are seen. IMPRESSION: 1. Interval development of mild periduodenal inflammatory change and possible wall thickening. Evaluation is somewhat limited given technique. Findings could reflect duodenitis . 2. Hepatic steatosis VTE Prophylaxis Ordered VTE Prophylaxis Devices: No VTE Pharmacological Prophylaxi: Yes Assessment/Plan Assessment/Plan Altered mental status Dehydration SOL DM2 with hyperglycemia Mild malnutrition History of CVA Plan: 1 L normal saline was seen in the ED. Will continue continuous IV hydration. If no improvement in kidney function with hydration, will obtain bilateral renal ultrasound and consult nephrology. We will obtain CRP to evaluate possible duodenitis; if significantly elevated will consult GI for further recommendations. MDSS insulin Resume home medications FEN - Cardiac diet PPX - Xarelto FULL CODE Dispo - inpatient for above Justifications for Admission Other Justification HCAP, sepsis, acute respiratory failure with hypoxia CHARLES WAY MD Jul 26, 2020 16:07
[2020-07-26] MEDS ORDERED: IBUP-1060 PO (16:26)
[2020-07-26] MEDS ORDERED: NYST15PO9 TP (16:26)
[2020-07-26] MEDS ORDERED: LISI20TA18 PO (16:26)
[2020-07-26] MEDS ORDERED: ONDA4TAB7 PO (16:26)
[2020-07-26] MEDS ORDERED: ACET325T21 PO (16:26)
[2020-07-26] MEDS ORDERED: BISACODYL 10 MG SUPP.RECT. PR PRN (16:45)
[2020-07-26] MEDS ORDERED: MAGNESIUM HYDROXIDE 2,400 MG/30 ML ORAL.SUSP. PO PRN (16:45)
--- NOTE | 2020-07-26 17:02 | EKG ---
[facility] [address] [place] [address] Test Date: 2020-07-26 Test Time: 09:58:23 Pat Name: GRISELDA ABDALLA Department: Room: Gender: M [employer]: : 1955 Requested By: ALANA MANDUJANO Order Number: [id number] Reading MD: Measurements Intervals [place] Rate: 56 P: 59 ME: 152 QRS: -8 QRSD: 96 T: 6 QT: 456 QTc: 443 Interpretive Statements SINUS RHYTHM LEFTWARD AXIS OTHERWISE NORMAL ECG RI6.02 No previous ECG available for comparison
[2020-07-26] MEDS: IV NORMAL SALINE 1000ML BAG 1,000 ML IV SCH ×2 (17:03→23:25)
[2020-07-26 19:00] VITALS: BP 132/56
[2020-07-26] MEDS: ZOLPIDEM 5 MG TABLET. PO PRN (21:18)
[2020-07-26] MEDS: MORPHINE SULFATE 2 MG/ML VIAL. IV PRN (21:19)
[2020-07-26 23:00] VITALS: BP 101/58
[2020-07-27] MEDS: MORPHINE SULFATE 2 MG/ML VIAL. IV PRN ×2 (01:00→05:53)
[2020-07-27 03:00] VITALS: BP 105/60
[2020-07-27 07:00] VITALS: BP 115/51
[2020-07-27] MEDS: IV NORMAL SALINE 1000ML BAG 1,000 ML IV SCH (09:34)
[2020-07-27 11:00] VITALS: BP 142/63
[2020-07-27 15:00] VITALS: BP 185/74
[2020-07-27] MEDS ORDERED: ONDANSETRON PF 4 MG/2 ML VIAL. IVP PRN (15:15)
[2020-07-27] MEDS ORDERED: ACETAMINOPHEN 325 MG TABLET. PO PRN (15:15)
[2020-07-27] MEDS ORDERED: fentaNYL PF VIAL 100 MCG/2 ML VIAL IVP PRN (15:15)
--- NOTE | 2020-07-27 15:29 | PDOC ---
[employer] PROGRESS NOTE Date of Service DOS: DATE: 07/27/20 TIME: 15:12 Chief Complaint Chief Complaint A/P: Acute encephalopathy - likely due to uremia from SOL. Will monitor SOL - vasomotor nephropathy, will hydrate Abdominal pain - Duodenitis, will monitor. If diarrhea x3 will check for c. difficile H/o cerebrovascular accident, right-sided hemiparesis and expressive aphasia. ASA statin History of pulmonary embolism. Details not available. H/o tobacco use Chronic obstructive pulmonary disease - prn nebs FEN - general diet PPX - xarelto FULL CODE. Has no contact information or DPOA. Dispo - inpatient for renal recovery. Likely home to SNF in next 48-72 hours History of Present Illness History of Present Illness Mr Arita is a 65-year-old male with past medical history left MCA CVA with residual expressive aphasia and right hemiparesis, pulmonary embolism on xarelto, who presents from his his [facility] due to altered mental status. History was provided by chart review. Patient was noted to be altered from his baseline this morning. He was reportedly more lethargic today from his normal awake and alert self. Upon arrival in the ED patient was complaining of abdominal pain. CT abdomen pelvis showed mild periduodenal inflammatory change and possible wall thickening, findings that could suggest duodenitis. Labs on admission showed BUN 61, creatinine 2.5, glucose 218, albumin 3.1. Labs upon most recent admission showed creatinine 0.7 on 07/01/2020. Further history cannot be obtained at this time due to clinical condition. Admitted patient for further medical management. Afebrile. Good urine output. He continues to say no and yes and is unable to identify any objects unable to provide any history. Vitals/I&O Vitals/I&O: Vital Signs Date Time Temp Pulse Resp B/P (MAP) Pulse Ox O2 Delivery O2 Flow Rate FiO2 07/27/20 11:00 98.0 78 18 142/63 (89) 96 Nasal Cannula 2.0 98.0 I & O 07/26/20 07/26/20 07/27/20 15:00 23:00 07:00 Intake Total 1000 ml 320 ml 520 ml Output Total 900 ml Balance 100 ml 320 ml 520 ml Physical Exam Lungs: Clear, Crackles Assessment and Plan Assessmemt and Plan Problems Medical Problems: (1) SOL (acute kidney injury) Status: Acute Comment Review of Relevant I have reviewed the following items janie (where applicable) has been applied. Medications: Current Medications Medications (Trade) Dose Ordered Sig/Ramy Route PRN Reason Start Time Stop Time Status Last Admin Dose Admin Zolpidem Tartrate (Ambien) 5 mg PRN QHS PRN PO INSOMNIA, MAY REPEAT IN 1HR 07/26/20 16:45 07/26/20 21:18 Justifications for Admission Other Justification HCAP, sepsis, acute respiratory failure with hypoxia POWER TENORIO MD Jul 27, 2020 15:29
[2020-07-27] MEDS ORDERED: ONDANSETRON ODT 4 MG TAB.RAPDIS. PO PRN (15:30)
[2020-07-27] MEDS: POLYETHYLENE GLYCOL 3350 17 GM PACKET. PO SCH (16:00)
[2020-07-27] MEDS: RIVAROXABAN 10 MG TABLET. PO SCH (16:07)
[2020-07-27] MEDS: ASPIRIN CHEWABLE 81 MG TABLET. PO SCH (16:07)
[2020-07-27] MEDS: FLUoxetine HCL 20 MG CAPSULE PO SCH (16:07)
[2020-07-27 19:00] VITALS: BP 161/73
[2020-07-27] MEDS: LACTOBACILLUS RHAMNOSUS GG 1 CAPSULE. PO SCH (21:43)
[2020-07-27] MEDS: ATORVASTATIN CALCIUM 40 MG TABLET. PO SCH (21:44)
[2020-07-27] MEDS: ZOLPIDEM 5 MG TABLET. PO PRN (21:45)
[2020-07-27 23:00] VITALS: BP 176/73
[2020-07-28 02:58] VITALS: BP 173/74
[2020-07-28 06:22] LABS: BASO % 0 % (0-3); EOS # 0.1 x10^3/uL (0.0-0.7); EOS % 1 % (0-3); HEMATOCRIT 41.5 % (39.0-53.0); HEMOGLOBIN 13.9 g/dL (13.0-17.5); LYMPH % 20 % (24-48); MEAN CORPUSCULAR HEMOGLOBIN 30 pg (25-35); MEAN CORPUSCULAR HGB CONC 34 g/dL (31-37); MEAN CORPUSCULAR VOLUME 88 fL (79-100); MONO # 1.2 x10^3/uL (0.0-1.1); MONO % 12 % (0-9); NEUT % 67 % (31-73); PLATELET COUNT 208 x10^3/uL (140-400); RED BLOOD COUNT 4.71 x10^6/uL (4.30-5.70); RED CELL DISTRIBUTION WIDTH 14.7 % (11.5-14.5); WHITE BLOOD COUNT 10.4 x10^3/uL (4.0-11.0)
[2020-07-28 06:28] LABS: CALCIUM 8.8 mg/dL (8.5-10.1); CREATININE 0.9 mg/dL (0.7-1.3); GFR 84.2; POTASSIUM 3.9 mmol/L (3.5-5.1)
[2020-07-28 07:00] VITALS: BP 156/67
[2020-07-28] MEDS: LACTOBACILLUS RHAMNOSUS GG 1 CAPSULE. PO SCH ×2 (09:24→21:26)
[2020-07-28] MEDS: POLYETHYLENE GLYCOL 3350 17 GM PACKET. PO SCH (09:24)
[2020-07-28] MEDS: ASPIRIN CHEWABLE 81 MG TABLET. PO SCH (09:24)
[2020-07-28] MEDS: FLUoxetine HCL 20 MG CAPSULE PO SCH (09:24)
--- NOTE | 2020-07-28 10:03 | PDOC ---
[employer] PROGRESS NOTE Date of Service DOS: DATE: 07/28/20 TIME: 10:09 Chief Complaint Chief Complaint A/P: Acute encephalopathy - likely due to uremia from SOL. Will monitor SOL - vasomotor nephropathy, will hydrate Abdominal pain - Duodenitis, will monitor. If diarrhea x3 will check for c. difficile H/o cerebrovascular accident, right-sided hemiparesis and expressive aphasia. ASA statin History of pulmonary embolism. Details not available. H/o tobacco use Chronic obstructive pulmonary disease - prn nebs FEN - general diet PPX - xarelto FULL CODE. Has no contact information or DPOA. Dispo - inpatient for renal recovery. 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 History was provided by chart review. Patient was noted to be altered from his baseline this morning. He was reportedly more lethargic today from his normal awake and alert self. Upon arrival in the ED patient was complaining of abdominal pain. CT abdomen pelvis showed mild periduodenal inflammatory change and possible wall thickening, findings that could suggest duodenitis. Labs on admission showed BUN 61, creatinine 2.5, glucose 218, albumin 3.1. Labs upon most recent admission showed creatinine 0.7 on 07/01/2020. Further history cannot be obtained at this time due to clinical condition. Admitted patient for further medical management. 07/27: Afebrile. Good urine output. He continues to say no and yes and is unable to identify any objects unable to provide any history. Afebrile. Creatinine down to 0.9 today. Having some more muscle spasming. Restarting gabapentin and baclofen. Urine with frida. Has some left sided burning. His answers are inconsistent. Asking "home?" Vitals/I&O Vitals/I&O: Vital Signs Date Time Temp Pulse Resp B/P (MAP) Pulse Ox O2 Delivery O2 Flow Rate FiO2 07/28/20 07:00 98.3 75 18 156/67 (96) 94 Nasal Cannula 3.0 98.3 I & O 07/27/20 07/27/20 07/28/20 14:53 22:53 06:53 Intake Total 20 ml Balance 20 ml Physical Exam General: Alert Lungs: Clear, Crackles Labs Labs: Laboratory Tests Test 07/28/20 05:55 White Blood Count 10.4 x10^3/uL (4.0-11.0) Red Blood Count 4.71 x10^6/uL (4.30-5.70) Hemoglobin 13.9 g/dL (13.0-17.5) Hematocrit 41.5 % (39.0-53.0) Mean Corpuscular Volume 88 fL (79-100) Mean Corpuscular Hemoglobin 30 pg (25-35) Mean Corpuscular Hemoglobin Concent 34 g/dL (31-37) Red Cell Distribution Width 14.7 % (11.5-14.5) Platelet Count 208 x10^3/uL (140-400) Neutrophils (%) (Auto) 67 % (31-73) Lymphocytes (%) (Auto) 20 % (24-48) Monocytes (%) (Auto) 12 % (0-9) Eosinophils (%) (Auto) 1 % (0-3) Basophils (%) (Auto) 0 % (0-3) Neutrophils # (Auto) 7.0 x10^3/uL (1.8-7.7) Lymphocytes # (Auto) 2.0 x10^3/uL (1.0-4.8) Monocytes # (Auto) 1.2 x10^3/uL (0.0-1.1) Eosinophils # (Auto) 0.1 x10^3/uL (0.0-0.7) Basophils # (Auto) 0.0 x10^3/uL (0.0-0.2) Sodium Level 144 mmol/L (136-145) Potassium Level 3.9 mmol/L (3.5-5.1) Chloride Level 108 mmol/L (98-107) Carbon Dioxide Level 27 mmol/L (21-32) Anion Gap 9 (6-14) Blood Urea Nitrogen 21 mg/dL (8-26) Creatinine 0.9 mg/dL (0.7-1.3) Estimated GFR (Cockcroft-Gault) 84.2 Glucose Level 117 mg/dL (70-99) Calcium Level 8.8 mg/dL (8.5-10.1) Assessment and Plan Assessmemt and Plan Problems Medical Problems: (1) SOL (acute kidney injury) Status: Acute Comment Review of Relevant I have reviewed the following items janie (where applicable) has been applied. Medications: Current Medications Medications (Trade) Dose Ordered Sig/Ramy Route PRN Reason Start Time Stop Time Status Last Admin Dose Admin Aspirin (Aspirin Chewable) 81 mg DAILY PO 07/27/20 16:00 07/28/20 09:24 Atorvastatin Calcium (Lipitor) 40 mg HS PO 07/27/20 21:00 07/27/20 21:44 Lactobacillus Rhamnosus (Culturelle) 1 cap BID PO 07/27/20 21:00 07/28/20 09:24 Polyethylene Glycol (miraLAX PACKET) 17 gm DAILY PO 07/27/20 16:00 07/28/20 09:24 Rivaroxaban (Xarelto) 10 mg DAILYWSUP PO 07/27/20 17:00 07/27/20 16:07 Fluoxetine HCl (PROzac) 40 mg DAILY PO 07/27/20 16:00 07/28/20 09:24 Olanzapine (ZyPREXA ZYDIS) 5 mg PRN BID PRN PO ANXIETY / AGITATION 07/27/20 15:15 07/28/20 09:24 Justifications for Admission Other Justification HCAP, sepsis, acute respiratory failure with hypoxia POWER TENORIO MD Jul 28, 2020 10:03
[2020-07-28] MEDS: BACLOFEN 10 MG TABLET. PO PRN ×2 (10:07→21:23)
[2020-07-28 11:00] VITALS: BP 145/63
[2020-07-28] MEDS: GABAPENTIN 300 MG CAPSULE. PO SCH ×2 (13:04→21:23)
[2020-07-28] MEDS: LISINOPRIL 20 MG TABLET PO SCH (13:05)
[2020-07-28] MEDS: MAGNESIUM HYDROXIDE 2,400 MG/30 ML ORAL.SUSP. PO SCH (13:05)
[2020-07-28 15:00] VITALS: BP 150/61
[2020-07-28] MEDS: RIVAROXABAN 10 MG TABLET. PO SCH (17:21)
[2020-07-28] MEDS: FLUCONAZOLE 100 MG TABLET. PO SCH (17:21)
[2020-07-28 19:00] VITALS: BP 161/66
[2020-07-28] MEDS ORDERED: SENNOSIDES/DOCUSATE 8.6/50MG TABLET. PO SCH (21:00)
[2020-07-28] MEDS: ATORVASTATIN CALCIUM 40 MG TABLET. PO SCH (21:23)
[2020-07-28] MEDS: ZOLPIDEM 5 MG TABLET. PO PRN (21:23)
[2020-07-28 23:00] VITALS: BP 125/67
[2020-07-29 03:00] VITALS: BP 128/57
[2020-07-29 06:51] VITALS: BP 137/61
[2020-07-29 07:32] LABS: CALCIUM 8.1 mg/dL (8.5-10.1); CREATININE 0.8 mg/dL (0.7-1.3); GFR 96.4; POTASSIUM 3.2 mmol/L (3.5-5.1)
--- NOTE | 2020-07-29 08:35 | PDOC ---
PROGRESS NOTES Date of Service: DATE: 07/29/20 TIME: 08:35 Chief Complaint Chief Complaint IMPRESSION Acute encephalopathy - likely due to uremia from SOL. RESOLVED SOL - vasomotor nephropathy, will hydrate Abdominal pain - Duodenitis, will monitor. If diarrhea x3 will check for c. difficile H/o cerebrovascular accident, right-sided hemiparesis and expressive aphasia. ASA statin History of pulmonary embolism. Details not available. H/o tobacco use Chronic obstructive pulmonary disease - prn nebs FEN - general diet PPX - xarelto FULL CODE. Has no contact information or DPOA. Dispo - inpatient for renal recovery. 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 History was provided by chart review. Patient was noted to be altered from his baseline this morning. He was reportedly more lethargic today from his normal awake and alert self. Upon arrival in the ED patient was complaining of abdominal pain. CT abdomen pelvis showed mild periduodenal inflammatory change and possible wall thickening, findings that could suggest duodenitis. Labs on admission showed BUN 61, creatinine 2.5, glucose 218, albumin 3.1. Labs upon most recent admission showed creatinine 0.7 on 07/01/2020. Further history cannot be obtained at this time due to clinical condition. Admitted patient for further medical management. 07/27: Afebrile. Good urine output. He continues to say no and yes and is u nable to identify any objects unable to provide any history. Afebrile. Creatinine down to 0.9 today. Having some more muscle spasming. Restarting gabapentin and baclofen. Urine with frida. Has some left sided burning. His answers are inconsistent. Asking "home? 6-14 D/C TO [facility] TODAY, BACK TO BASELINE D/C PLANNING 33 MIN Vitals Vitals Vital Signs Date Time Temp Pulse Resp B/P (MAP) Pulse Ox O2 Delivery O2 Flow Rate FiO2 07/29/20 06:51 98.7 67 18 137/61 (86) 95 Room Air 98.7 07/28/20 07:00 3.0 Physical Exam General: Alert, Oriented X3, Cooperative, No acute distress Heart: Regular rate, No murmurs Lungs: Clear, Crackles Abdomen: Normal bowel sounds, Soft, No tenderness Extremities: No cyanosis, No edema Skin: No significant lesion Labs LABS SPDES: JESSICA QUINTANA ORDERED: URINE CULTURE Procedure Result URINE CULTURE Final Final 20,000 CFU/ML [FRIDA ALBICANS] on 07/28/20 at 1236 Testing Performed by: [place] [address] For Inquires, the Physician may contact the Microbiology department at [phone] FRIDA ALBICANS Unless otherwise specified, Testing Performed by: [address] [address] For Inquires, the Physician may contact the Microbiology department at [phone] Laboratory Tests Test 07/29/20 04:25 Sodium Level 144 mmol/L (136-145) Potassium Level 3.2 mmol/L (3.5-5.1) Chloride Level 106 mmol/L (98-107) Carbon Dioxide Level 27 mmol/L (21-32) Anion Gap 11 (6-14) Blood Urea Nitrogen 19 mg/dL (8-26) Creatinine 0.8 mg/dL (0.7-1.3) Estimated GFR (Cockcroft-Gault) 96.4 Glucose Level 75 mg/dL (70-99) Calcium Level 8.1 mg/dL (8.5-10.1) Assessment and Plan Assessmemt and Plan Problems Medical Problems: (1) SOL (acute kidney injury) Status: Acute Comment Review of Relevant I have reviewed the following items janie (where applicable) has been applied. Labs Laboratory Tests Test 07/28/20 05:55 07/29/20 04:25 White Blood Count 10.4 x10^3/uL (4.0-11.0) Red Blood Count 4.71 x10^6/uL (4.30-5.70) Hemoglobin 13.9 g/dL (13.0-17.5) Hematocrit 41.5 % (39.0-53.0) Mean Corpuscular Volume 88 fL (79-100) Mean Corpuscular Hemoglobin 30 pg (25-35) Mean Corpuscular Hemoglobin Concent 34 g/dL (31-37) Red Cell Distribution Width 14.7 % (11.5-14.5) Platelet Count 208 x10^3/uL (140-400) Neutrophils (%) (Auto) 67 % (31-73) Lymphocytes (%) (Auto) 20 % (24-48) Monocytes (%) (Auto) 12 % (0-9) Eosinophils (%) (Auto) 1 % (0-3) Basophils (%) (Auto) 0 % (0-3) Neutrophils # (Auto) 7.0 x10^3/uL (1.8-7.7) Lymphocytes # (Auto) 2.0 x10^3/uL (1.0-4.8) Monocytes # (Auto) 1.2 x10^3/uL (0.0-1.1) Eosinophils # (Auto) 0.1 x10^3/uL (0.0-0.7) Basophils # (Auto) 0.0 x10^3/uL (0.0-0.2) Sodium Level 144 mmol/L (136-145) 144 mmol/L (136-145) Potassium Level 3.9 mmol/L (3.5-5.1) 3.2 mmol/L (3.5-5.1) Chloride Level 108 mmol/L (98-107) 106 mmol/L (98-107) Carbon Dioxide Level 27 mmol/L (21-32) 27 mmol/L (21-32) Anion Gap 9 (6-14) 11 (6-14) Blood Urea Nitrogen 21 mg/dL (8-26) 19 mg/dL (8-26) Creatinine 0.9 mg/dL (0.7-1.3) 0.8 mg/dL (0.7-1.3) Estimated GFR (Cockcroft-Gault) 84.2 96.4 Glucose Level 117 mg/dL (70-99) 75 mg/dL (70-99) Calcium Level 8.8 mg/dL (8.5-10.1) 8.1 mg/dL (8.5-10.1) Laboratory Tests Test 07/29/20 04:25 Sodium Level 144 mmol/L (136-145) Potassium Level 3.2 mmol/L (3.5-5.1) Chloride Level 106 mmol/L (98-107) Carbon Dioxide Level 27 mmol/L (21-32) Anion Gap 11 (6-14) Blood Urea Nitrogen 19 mg/dL (8-26) Creatinine 0.8 mg/dL (0.7-1.3) Estimated GFR (Cockcroft-Gault) 96.4 Glucose Level 75 mg/dL (70-99) Calcium Level 8.1 mg/dL (8.5-10.1) Microbiology 07/26/20 Urine Culture - Final, Complete Medications Current Medications Sodium Chloride 1,000 ml @ 1,000 mls/hr 1X ONCE IV Last administered on 07/26/20at 11:00; Start 07/26/20 at 11:00; Stop 07/26/20 at 11:59; Status DC Ondansetron HCl (Zofran) 4 mg PRN Q8HRS PRN IV NAUSEA/VOMITING; Start 07/26/20 at 13:15; Stop 07/27/20 at 13:14; Status DC Morphine Sulfate (Morphine Sulfate) 2 mg PRN Q2HR PRN IV PAIN Last administered on 07/27/20at 05:53; Start 07/26/20 at 13:15; Stop 07/27/20 at 13:14; Status DC Sodium Chloride 1,000 ml @ 100 mls/hr Q10H IV Last administered on 07/27/20at 09:34; Start 07/26/20 at 13:15; Stop 07/27/20 at 13:14; Status DC Acetaminophen (Tylenol) 650 mg PRN Q4HRS PRN PO FEVER > 100.3'F; Start 07/26/20 at 13:15; Stop 07/27/20 at 13:14; Status DC Zolpidem Tartrate (Ambien) 5 mg PRN QHS PRN PO INSOMNIA, MAY REPEAT IN 1HR Last administered on 07/28/20at 21:23; Start 07/26/20 at 16:45 Magnesium Hydroxide (Milk Of Magnesia) 2,400 mg PRN Q12HR PRN PO CONSTIPATION; Start 07/26/20 at 16:45 Bisacodyl (Dulcolax Supp) 10 mg PRN DAILY PRN WI CONSTIPATION; Start 07/26/20 at 16:45 Aspirin (Aspirin Chewable) 81 mg DAILY PO Last administered on 07/28/20at 09:24; Start 07/27/20 at 16:00 Atorvastatin Calcium (Lipitor) 40 mg HS PO Last administered on 07/28/20at 21:23; Start 07/27/20 at 21:00 Lactobacillus Rhamnosus (Culturelle) 1 cap BID PO Last administered on 07/28/20at 21:26; Start 07/27/20 at 21:00 Polyethylene Glycol (miraLAX PACKET) 17 gm DAILY PO Last administered on 07/28/20at 09:24; Start 07/27/20 at 16:00 Rivaroxaban (Xarelto) 10 mg DAILYWSUP PO Last administered on 07/28/20at 17:21; Start 07/27/20 at 17:00 Fluoxetine HCl (PROzac) 40 mg DAILY PO Last administered on 07/28/20at 09:24; Start 07/27/20 at 16:00 Ondansetron HCl (Zofran Odt) 4 mg PRN Q4HRS PRN PO NAUSEA/VOMITING; Start 07/27/20 at 15:30 Olanzapine (ZyPREXA ZYDIS) 5 mg PRN BID PRN PO ANXIETY / AGITATION Last admi nistered on 07/28/20at 09:24; Start 07/27/20 at 15:15 Ondansetron HCl (Zofran) 4 mg PRN Q4HRS PRN IVP NAUSEA/VOMITING; Start 07/27/20 at 15:15 Fentanyl Citrate (Fentanyl 2ml Vial) 25 mcg PRN Q3HRS PRN IVP SEVERE PAIN 7-10; Start 07/27/20 at 15:15 Acetaminophen (Tylenol) 650 mg PRN Q6HRS PRN PO MILD PAIN / TEMP > 100.3'F; Start 07/27/20 at 15:15 Gabapentin (Neurontin) 600 mg TID PO Last administered on 07/28/20at 21:23; Start 07/28/20 at 14:00 Baclofen (Lioresal) 20 mg PRN TID PRN PO muscle spasms Last administered on 07/28/20at 21:23; Start 07/28/20 at 10:15 Lisinopril (Prinivil) 20 mg DAILY PO Last administered on 07/28/20at 13:05; Start 07/28/20 at 11:00 Magnesium Hydroxide (Milk Of Magnesia) 400 mg DAILY PO Last administered on 07/28/20at 13:05; Start 07/28/20 at 11:00 Senna/Docusate Sodium (Senna Plus) 2 tab QHS PO Last administered on 07/28/20at 21:23; Start 07/28/20 at 21:00 Fluconazole (Diflucan) 100 mg DAILY PO Last administered on 07/28/20at 17:21; Start 07/28/20 at 14:00; Stop 08/04/20 at 13:59 Active Scripts Active Culturelle (Lactobacillus Rhamnosus Gg) 1 Each Cap.sprink 1 Cap PO BID 30 Days Mag-Al Plus Xs Suspension (Mag Hydrox/Al Hydrox/Simeth) 30 Ml Oral.susp 30 Ml PO PRN Q3HRS PRN 14 Days Duoneb 0.5-3(2.5) Mg/3 Ml (Albuterol/Ipratropium) 3 Ml Ampul.neb 3 Ml NEB RTQID 30 Days Reported Zofran (Ondansetron Hcl) 4 Mg Tablet 1 Tab PO PRN Q4HRS PRN Nystatin 15 Gm Powder 1 Garth TP BID 7 Days apply to affected area(s) Lisinopril 20 Mg Tablet 1 Tab PO DAILY Ibuprofen 800 Mg Tablet 800 Mg PO TID Acetaminophen 325 Mg Tablet 2 Tab PO PRN Q4-6HRS PRN 24 Days Neurontin (Gabapentin) 300 Mg Capsule 600 Mg PO TID Xarelto (Rivaroxaban) 10 Mg Tablet 10 Mg PO DAILY Senna-Docusate Sodium Tablet (Sennosides/Docusate Sodium) 1 Each Tablet 2 Tab PO QHS Prozac (Fluoxetine Hcl) 40 Mg Capsule 40 Mg PO DAILY Lyrica (Pregabalin) 75 Mg Capsule 75 Mg PO BID Miralax (Polyethylene Glycol 3350) 17 Gm Powd.pack 1 Packet PO DAILY 2 Days dissolve in water Milk Of Magnesia (Magnesium Hydroxide) 400 Mg/5 Ml Oral.susp 400 Mg PO DAILY PRN Atorvastatin Calcium 40 Mg Tablet 40 Mg PO HS Baclofen 20 Mg Tablet 20 Mg PO TID Children's Aspirin (Aspirin) 81 Mg Tab.chew 81 Mg PO DAILY Vitals/I & O Vital Sign - Last 24 Hours 07/28/20 07/28/20 07/28/20 07/28/20 11:00 13:05 15:00 19:00 Temp 98.3 98.7 98.5 98.3 98.7 98.5 Pulse 74 74 69 73 Resp 16 16 18 B/P (MAP) 145/63 (90) 145/63 150/61 (90) 161/66 (97) Pulse Ox 93 92 90 O2 Delivery Room Air Room Air 07/28/20 07/28/20 07/29/20 07/29/20 19:27 23:00 03:00 06:51 Temp 98.2 98.0 98.7 98.2 98.0 98.7 Pulse 59 65 67 Resp 16 17 18 B/P (MAP) 125/67 (86) 128/57 (80) 137/61 (86) Pulse Ox 95 91 95 O2 Delivery Room Air Room Air Room Air Room Air Intake and Output 07/28/20 07/28/20 07/29/20 14:59 22:59 06:59 Intake Total 100 ml 100 ml Output Total 900 ml Balance -900 ml 100 ml 100 ml Justicifation of Admission Dx: Justifications for Admission: Justification of Admission Dx: Yes Comminuty Aquired Pneumonia: Hypoxemia Sepsis: Hypoxemia CASE CRAIN MD Jul 29, 2020 08:35
[2020-07-29] MEDS: POLYETHYLENE GLYCOL 3350 17 GM PACKET. PO SCH (08:38)
[2020-07-29] MEDS: LISINOPRIL 20 MG TABLET PO SCH (08:39)
[2020-07-29] MEDS: ASPIRIN CHEWABLE 81 MG TABLET. PO SCH (08:39)
[2020-07-29] MEDS: FLUCONAZOLE 100 MG TABLET. PO SCH (08:39)
[2020-07-29] MEDS: GABAPENTIN 300 MG CAPSULE. PO SCH (08:39)
[2020-07-29] MEDS: LACTOBACILLUS RHAMNOSUS GG 1 CAPSULE. PO SCH (08:39)
[2020-07-29] MEDS: FLUoxetine HCL 20 MG CAPSULE PO SCH (08:39)
[2020-07-29] MEDS: MAGNESIUM HYDROXIDE 2,400 MG/30 ML ORAL.SUSP. PO SCH (08:47)
--- NOTE | 2020-07-29 10:08 | PDOC3 ---
Discharge Summary Date of Admission: Jul 26, 2020 Date of Discharge: Jul 29, 2020 Follow-Up: 1-2 days Admitting Diagnosis comment: COMPLICATIONS NONE CONSULTS NONE D/C MEDS SEE MAR Chief Complaint Chief Complaint DISCHARGE DX Acute METABOLIC encephalopathy - likely due to uremia from SOL. RESOLVED SOL - vasomotor nephropathy, will hydrate Abdominal pain - Duodenitis, will monitor. If diarrhea x3 will check for c. difficile ABD PAIN RESOLVED TODAY 6-14 H/o cerebrovascular accident, right-sided hemiparesis and expressive aphasia. ASA statin History of pulmonary embolism. Details not available. H/o tobacco use Chronic obstructive pulmonary disease - prn nebs FEN - general diet PPX - xarelto FULL CODE. Has no contact information or DPOA. Dispo - inpatient for renal recovery. Likely home to SNF TODAY History of Present Illness History of Present Illness HPI Mr Arita is a 65-year-old male with past medical history left MCA CVA with res idual expressive aphasia and right hemiparesis, pulmonary embolism on xarelto, who presents from his his [facility] due to altered mental status. History was provided by chart review. Patient was noted to be altered from his baseline this morning. He was reportedly more lethargic today from his normal awake and alert self. Upon arrival in the ED patient was complaining of abdominal pain. CT abdomen pelvis showed mild periduodenal inflammatory change and possible wall thickening, findings that could suggest duodenitis. Labs on admission showed BUN 61, creatinine 2.5, glucose 218, albumin 3.1. Labs upon most recent admission showed creatinine 0.7 on 07/01/2020. Further history cannot be obtained at this time due to clinical condition. Admitted patient for further medical management. 07/27: Afebrile. Good urine output. He continues to say no and yes and is unable to identify any objects unable to provide any history. Afebrile. Creatinine down to 0.9 today. Having some more muscle spasming. Restarting gabapentin and baclofen. Urine with frida. Has some left sided burning. His answers are inconsistent. Asking "home? 6-14 D/C TO [facility] TODAY, BACK TO BASELINE D/C PLANNING 33 MIN Vitals Vitals Vital Signs Date Time Temp Pulse Resp B/P (MAP) Pulse Ox O2 Delivery O2 Flow Rate FiO2 07/29/20 06:51 98.7 67 18 137/61 (86) 95 Room Air 98.7 07/28/20 07:00 3.0 Physical Exam General: Alert, Oriented X3, Cooperative, No acute distress Heart: Regular rate, No murmurs Lungs: Clear, Crackles Abdomen: Normal bowel sounds, Soft, No tenderness Extremities: No cyanosis, No edema Skin: No significant lesion Labs LABS SPDES: JESSICA QUINTANA ORDERED: URINE CULTURE Procedure Result --- --------- URINE CULTURE Final Final 20,000 CFU/ML [FRIDA ALBICANS] on 07/28/20 at 1236 Testing Performed by: [place] [address] For Inquires, the Physician may contact the Microbiology department at [phone] FRIDA ALBICANS Unless otherwise specified, Testing Performed by: [address] [address] For Inquires, the Physician may contact the Microbiology department at [phone] Laboratory Tests Test 07/29/20 04:25 Sodium Level 144 mmol/L (136-145) Potassium Level 3.2 mmol/L (3.5-5.1) Chloride Level 106 mmol/L (98-107) Carbon Dioxide Level 27 mmol/L (21-32) Anion Gap 11 (6-14) Blood Urea Nitrogen 19 mg/dL (8-26) Creatinine 0.8 mg/dL (0.7-1.3) Estimated GFR (Cockcroft-Gault) 96.4 Glucose Level 75 mg/dL (70-99) Calcium Level 8.1 mg/dL (8.5-10.1) Assessment and Plan Assessmemt and Plan Problems Medical Problems: (1) SOL (acute kidney injury) Status: Acute FINAL DIAGNOSIS Problems Medical Problems: (1) SOL (acute kidney injury) Status: Acute Brief Hospital Course Mr. Arita is a 65 old [sex] who presented with [ACUTE ENCEPHALOPATHY, SOL ] CONDITION AT DISCHARGE: Improved Discharge Medications Current Medications Sodium Chloride 1,000 ml @ 1,000 mls/hr 1X ONCE IV Last administered on 07/26/20at 11:00; Start 07/26/20 at 11:00; Stop 07/26/20 at 11:59; Status DC Ondansetron HCl (Zofran) 4 mg PRN Q8HRS PRN IV NAUSEA/VOMITING; Start 07/26/20 at 13:15; Stop 07/27/20 at 13:14; Status DC Morphine Sulfate (Morphine Sulfate) 2 mg PRN Q2HR PRN IV PAIN Last administered on 07/27/20at 05:53; Start 07/26/20 at 13:15; Stop 07/27/20 at 13:14; Status DC Sodium Chloride 1,000 ml @ 100 mls/hr Q10H IV Last administered on 07/27/20at 09:34; Start 07/26/20 at 13:15; Stop 07/27/20 at 13:14; Status DC Acetaminophen (Tylenol) 650 mg PRN Q4HRS PRN PO FEVER > 100.3'F; Start 07/26/20 at 13:15; Stop 07/27/20 at 13:14; Status DC Zolpidem Tartrate (Ambien) 5 mg PRN QHS PRN PO INSOMNIA, MAY REPEAT IN 1HR Last administered on 07/28/20at 21:23; Start 07/26/20 at 16:45 Magnesium Hydroxide (Milk Of Magnesia) 2,400 mg PRN Q12HR PRN PO CONSTIPATION; Start 07/26/20 at 16:45 Bisacodyl (Dulcolax Supp) 10 mg PRN DAILY PRN [place] CONSTIPATION; Start 07/26/20 at 16:45 Aspirin (Aspirin Chewable) 81 mg DAILY PO Last administered on 07/29/20 08:39; Start 07/27/20 at 16:00 Atorvastatin Calcium (Lipitor) 40 mg HS PO Last administered on 07/28/20 21:23; Start 07/27/20 at 21:00 Lactobacillus Rhamnosus (Culturelle) 1 cap BID PO Last administered on 07/29/20 08:39; Start 07/27/20 at 21:00 Polyethylene Glycol (miraLAX PACKET) 17 gm DAILY PO Last administered on 07/29/20 08:38; Start 07/27/20 at 16:00 Rivaroxaban (Xarelto) 10 mg DAILYWSUP PO Last administered on 07/28/20at 17:21; Start 07/27/20 at 17:00 Fluoxetine HCl (PROzac) 40 mg DAILY PO Last administered on 07/29/20 08:39; Start 07/27/20 at 16:00 Ondansetron HCl (Zofran Odt) 4 mg PRN Q4HRS PRN PO NAUSEA/VOMITING; Start 07/27/20 at 15:30 Olanzapine (ZyPREXA ZYDIS) 5 mg PRN BID PRN PO ANXIETY / AGITATION Last administered on 07/28/20at 09:24; Start 07/27/20 at 15:15 Ondansetron HCl (Zofran) 4 mg PRN Q4HRS PRN IVP NAUSEA/VOMITING; Start 07/27/20 at 15:15 Fentanyl Citrate (Fentanyl 2ml Vial) 25 mcg PRN Q3HRS PRN IVP SEVERE PAIN 7-10; Start 07/27/20 at 15:15 Acetaminophen (Tylenol) 650 mg PRN Q6HRS PRN PO MILD PAIN / TEMP > 100.3'F; Start 07/27/20 at 15:15 Gabapentin (Neurontin) 600 mg TID PO Last administered on 07/29/20 08:39; Start 07/28/20 at 14:00 Baclofen (Lioresal) 20 mg PRN TID PRN PO muscle spasms Last administered on 07/28/20 21:23; Start 07/28/20 at 10:15 Lisinopril (Prinivil) 20 mg DAILY PO Last administered on 07/29/20 08:39; Start 07/28/20 at 11:00 Magnesium Hydroxide (Milk Of Magnesia) 400 mg DAILY PO Last administered on 07/29/20at 08:47; Start 07/28/20 at 11:00 Senna/Docusate Sodium (Senna Plus) 2 tab QHS PO Last administered on 07/28/20 21:23; Start 07/28/20 at 21:00 Fluconazole (Diflucan) 100 mg DAILY PO Last administered on 07/29/20 08:39; Start 07/28/20 at 14:00; Stop 08/04/20 at 13:59 Active Scripts Active Culturelle (Lactobacillus Rhamnosus Gg) 1 Each Cap.sprink 1 Cap PO BID 30 Days Mag-Al Plus Xs Suspension (Mag Hydrox/Al Hydrox/Simeth) 30 Ml Oral.susp 30 Ml PO PRN Q3HRS PRN 14 Days Duoneb 0.5-3(2.5) Mg/3 Ml (Albuterol/Ipratropium) 3 Ml Ampul.neb 3 Ml NEB RTQID 30 Days Reported Zofran (Ondansetron Hcl) 4 Mg Tablet 1 Tab PO PRN Q4HRS PRN Nystatin 15 Gm Powder 1 Garth TP BID 7 Days apply to affected area(s) Lisinopril 20 Mg Tablet 1 Tab PO DAILY Ibuprofen 800 Mg Tablet 800 Mg PO TID Acetaminophen 325 Mg Tablet 2 Tab PO PRN Q4-6HRS PRN 24 Days Neurontin (Gabapentin) 300 Mg Capsule 600 Mg PO TID Xarelto (Rivaroxaban) 10 Mg Tablet 10 Mg PO DAILY Senna-Docusate Sodium Tablet (Sennosides/Docusate Sodium) 1 Each Tablet 2 Tab PO QHS Prozac (Fluoxetine Hcl) 40 Mg Capsule 40 Mg PO DAILY Lyrica (Pregabalin) 75 Mg Capsule 75 Mg PO BID Miralax (Polyethylene Glycol 3350) 17 Gm Powd.pack 1 Packet PO DAILY 2 Days dissolve in water Milk Of Magnesia (Magnesium Hydroxide) 400 Mg/5 Ml Oral.susp 400 Mg PO DAILY PRN Atorvastatin Calcium 40 Mg Tablet 40 Mg PO HS Baclofen 20 Mg Tablet 20 Mg PO TID Children's Aspirin (Aspirin) 81 Mg Tab.chew 81 Mg PO DAILY Vital Signs Vital Signs Date Time Temp Pulse Resp B/P (MAP) Pulse Ox O2 Delivery O2 Flow Rate FiO2 07/29/20 08:39 67 137/61 07/29/20 07:15 Room Air 07/29/20 06:51 98.7 18 95 98.7 07/28/20 07:00 3.0 Labs Laboratory Tests Test 07/28/20 05:55 07/29/20 04:25 White Blood Count 10.4 x10^3/uL (4.0-11.0) Red Blood Count 4.71 x10^6/uL (4.30-5.70) Hemoglobin 13.9 g/dL (13.0-17.5) Hematocrit 41.5 % (39.0-53.0) Mean Corpuscular Volume 88 fL (79-100) Mean Corpuscular Hemoglobin 30 pg (25-35) Mean Corpuscular Hemoglobin Concent 34 g/dL (31-37) Red Cell Distribution Width 14.7 % (11.5-14.5) Platelet Count 208 x10^3/uL (140-400) Neutrophils (%) (Auto) 67 % (31-73) Lymphocytes (%) (Auto) 20 % (24-48) Monocytes (%) (Auto) 12 % (0-9) Eosinophils (%) (Auto) 1 % (0-3) Basophils (%) (Auto) 0 % (0-3) Neutrophils # (Auto) 7.0 x10^3/uL (1.8-7.7) Lymphocytes # (Auto) 2.0 x10^3/uL (1.0-4.8) Monocytes # (Auto) 1.2 x10^3/uL (0.0-1.1) Eosinophils # (Auto) 0.1 x10^3/uL (0.0-0.7) Basophils # (Auto) 0.0 x10^3/uL (0.0-0.2) Sodium Level 144 mmol/L (136-145) 144 mmol/L (136-145) Potassium Level 3.9 mmol/L (3.5-5.1) 3.2 mmol/L (3.5-5.1) Chloride Level 108 mmol/L (98-107) 106 mmol/L (98-107) Carbon Dioxide Level 27 mmol/L (21-32) 27 mmol/L (21-32) Anion Gap 9 (6-14) 11 (6-14) Blood Urea Nitrogen 21 mg/dL (8-26) 19 mg/dL (8-26) Creatinine 0.9 mg/dL (0.7-1.3) 0.8 mg/dL (0.7-1.3) Estimated GFR (Cockcroft-Gault) 84.2 96.4 Glucose Level 117 mg/dL (70-99) 75 mg/dL (70-99) Calcium Level 8.8 mg/dL (8.5-10.1) 8.1 mg/dL (8.5-10.1) Vitamin B12 Level 458 pg/mL (247-911) Laboratory Tests Test 07/29/20 04:25 Sodium Level 144 mmol/L (136-145) Potassium Level 3.2 mmol/L (3.5-5.1) Chloride Level 106 mmol/L (98-107) Carbon Dioxide Level 27 mmol/L (21-32) Anion Gap 11 (6-14) Blood Urea Nitrogen 19 mg/dL (8-26) Creatinine 0.8 mg/dL (0.7-1.3) Estimated GFR (Cockcroft-Gault) 96.4 Glucose Level 75 mg/dL (70-99) Calcium Level 8.1 mg/dL (8.5-10.1) Allergies Allergies Coded Allergies Type Severity Reaction Last Updated Verified No Known Medication Allergies Allergy Unknown 05/09/20 Yes Penicillins Adverse Reaction Intermediate nausea, vomiting 05/09/20 Yes Disposition/Orders: Other (D/C TO [facility]) Justicifation of Admission Dx: Justifications for Admission: Justification of Admission Dx: Yes Comminuty Aquired Pneumonia: Hypoxemia Sepsis: Hypoxemia CASE CRAIN MD Jul 29, 2020 10:07
[2020-07-29] MEDS ORDERED: OLAN5TAB7 PO (10:13)
[2020-07-29] MEDS ORDERED: Fluconazole PO (10:13)
[2020-07-29] MEDS ORDERED: BISA10SU4 PR (10:13)
--- NOTE | 2020-07-29 10:15 | SNU/HH DC ---
DISCHARGE ORDERS DISCHARGE INFORMATION: DISCHARGE DATE: Jul 29, 2020 FINAL DIAGNOSIS Problems Medical Problems: (1) SOL (acute kidney injury) Status: Acute CONDITION ON DISCHARGE: Stable CODE STATUS: Code Status: Full CORRECTION: SNF STAY <30 DAYS: No HOSPICE: HOSPICE: No HOSPICE EVAL & TREAT: No LTAC: ADMIT TO LTAC: No POST DISCHARGE ORDERS: ACTIVITY ORDERS: Activity as tolerated WEIGHT BEARING STATUS: As tolerated DIET AFTER DISCHARGE: Cardiac CHECKS AFTER DISCHARGE: CHECKS AFTER DISCHARGE: Check blood press - daily FOLLOW-UP: PHYSICIAN FOLLOW-UP: PCP AT [facility] TODAY TREATMENT/EQUIPMENT ORDERS: ADAPTIVE EQUIPMENT NEEDED: Front wheeled walker RESPIRATORY EQUIPMENT NEEDED: Oxygen, Nebulizer Physical Therapy For: Evalulation/Treatment Occupational Therapy For: Evaluation/Treatment Speech Language Pathology For: Evaluation/Treatment DISCHARGE MEDICATIONS: Home Meds Active Scripts Bisacodyl (BISACODYL) 10 Mg Supp.rect, 10 MG ID PRN DAILY PRN for CONSTIPATION for 14 Days, #14 SUPP.RECT Prov:CASE CRAIN MD 07/29/20 Olanzapine (OLANZAPINE ODT) 5 Mg Tab.rapdis, 5 MG PO PRN BID PRN for ANXIETY / AGITATION for 10 Days, #20 TAB Prov:CASE CRAIN MD 07/29/20 [Fluconazole] 100 MG TABLET No Conflict Check, 100 MG PO DAILY for UTI for 10 Days, #10 TAB Prov:CASE CRAIN MD 07/29/20 Lactobacillus Rhamnosus Gg (CULTURELLE) 1 Each Cap.sprink, 1 CAP PO BID for SUPPLEMENT for 30 Days, #60 CAP Prov:CASE CRAIN MD 07/01/20 Ipratropium/Albuterol Sulfate (DUONEB 0.5-3(2.5) MG/3 ML) 3 Ml Ampul.neb, 3 ML NEB RTQID for PNEUMONIA for 30 Days, #120 EACH Prov:CASE CRAIN MD 07/01/20 Reported Medications Ondansetron Hcl (ZOFRAN) 4 Mg Tablet, 1 TAB PO PRN Q4HRS PRN for NAUSEA/VOMITING, #20 TAB 07/26/20 Nystatin (NYSTATIN) 15 Gm Powder, 1 PUJA TP BID for groin for 7 Days, #1 BOTTLE 0 Refills apply to affected area(s) 07/26/20 Lisinopril (LISINOPRIL) 20 Mg Tablet, 1 TAB PO DAILY for bp, #30 TAB 5 Refills 07/26/20 Acetaminophen (ACETAMINOPHEN) 325 Mg Tablet, 2 TAB PO PRN Q4-6HRS PRN for pain or fever for 24 Days, #100 TAB 0 Refills 07/26/20 Gabapentin (NEURONTIN ) 300 Mg Capsule, 600 MG PO TID for NEUROGENIC PAIN, CAP 06/28/20 Rivaroxaban (XARELTO) 10 Mg Tablet, 10 MG PO DAILY for HX PE, TAB 06/28/20 Sennosides/Docusate Sodium (Senna-Docusate Sodium Tablet) 1 Each Tablet, 2 TAB PO QHS for constipation, TAB 0 Refills 06/28/20 Fluoxetine Hcl (PROZAC) 40 Mg Capsule, 40 MG PO DAILY for depression, CAP 06/28/20 Polyethylene Glycol 3350 (MIRALAX) 17 Gm Powd.pack, 1 PACKET PO DAILY for constipation for 2 Days, #2 PACKET 0 Refills dissolve in water 06/28/20 Magnesium Hydroxide (MILK OF MAGNESIA) 400 Mg/5 Ml Oral.susp, 400 MG PO DAILY PRN for bowel care, MISC 06/28/20 Atorvastatin Calcium (ATORVASTATIN CALCIUM) 40 Mg Tablet, 40 MG PO HS for FOR CHOLESTEROL, #30 TAB 0 Refills 06/28/20 Baclofen (BACLOFEN) 20 Mg Tablet, 20 MG PO TID for MUSCLE RELAXER, #30 TAB 0 Refills 06/28/20 Aspirin (Children's Aspirin) 81 Mg Tab.chew, 81 MG PO DAILY for prophylaxis, TAB.CHEW 06/28/20 Discontinued Reported Medications Ibuprofen (IBUPROFEN) 800 Mg Tablet, 800 MG PO TID for r arm pain, TAB 07/26/20 Pregabalin (LYRICA) 75 Mg Capsule, 75 MG PO BID for neuropathic pain, CAP 06/28/20 Discontinued Scripts Mag Hydrox/Al Hydrox/Simeth (MAG-AL PLUS XS SUSPENSION) 30 Ml Oral.susp, 30 ML PO PRN Q3HRS PRN for HEARTBURN / GAS for 14 Days, #120 MISC Prov:CASE CRAIN MD 07/01/20 CASE CRAIN MD Jul 29, 2020 10:15
[2020-07-29 10:24] VITALS: BP 149/67
[2020-07-30 01:08] LABS: HEMOGLOBIN A1C 8.2 % (4.8-5.6)
== END 2020-07-29 14:55 | DRG 682 ==
LOC: ER 09:29 → 4 NORTH 12:39
PROVIDERS: ADMIT Family Medicine; ATTEND Family Medicine
DX: N17.0 Acute kidney failure with tubular necrosis (principal); G93.41 Metabolic encephalopathy; E44.1 Mild protein-calorie malnutrition; I69.351 Hemiplegia and hemiparesis following cerebral infarction affecting right dominant side; J98.11 Atelectasis; E11.65 Type 2 diabetes mellitus with hyperglycemia; E78.00 Pure hypercholesterolemia, unspecified; E78.5 Hyperlipidemia, unspecified; E86.0 Dehydration; G93.89 Other specified disorders of brain; I10 Essential (primary) hypertension; I69.320 Aphasia following cerebral infarction; I70.0 Atherosclerosis of aorta; J44.9 Chronic obstructive pulmonary disease, unspecified; K29.80 Duodenitis without bleeding; K76.0 Fatty (change of) liver, not elsewhere classified; R09.02 Hypoxemia; Z51.5 Encounter for palliative care; Z86.711 Personal history of pulmonary embolism; Z87.891 Personal history of nicotine dependence; F32.9 Major depressive disorder, single episode, unspecified; Z68.28 Body mass index [BMI] 28.0-28.9, adult; Z88.0 Allergy status to penicillin
CPT/HCPCS: 36415; 36600; 70450; 71045; 74176; 80048; 80053; 81001; 82140; 82607; 82805; 83036; 83605; 83735; 83880; 84484; 85025; 87077; 87086; 93005; 96360; 96361; J2270; J7030; P9612; 99285-25; G0378

== ENCOUNTER 2020-12-06 11:52 | Inpatient (IN) | payer MEDICARE, OTHER ==
[~2020-12-06] VITALS: Ht 167.6 cm; Wt 96.8 kg
[~2020-12-06 11:52] MED LIST changes: +ACET325T21 PO; +BISA10SU4 PR; +Fluconazole PO; +IBUP-1060 PO; +LISI20TA18 PO; +NYST15PO9 TP; +ONDA4TAB7 PO
[2020-12-06 12:31] LABS: BASO % 0 % (0-3); EOS # 0.1 x10^3/uL (0.0-0.7); EOS % 1 % (0-3); HEMATOCRIT 28.8 % (39.0-53.0); HEMOGLOBIN 9.5 g/dL (13.0-17.5); LYMPH % 14 % (24-48); MEAN CORPUSCULAR HEMOGLOBIN 30 pg (25-35); MEAN CORPUSCULAR HGB CONC 33 g/dL (31-37); MEAN CORPUSCULAR VOLUME 91 fL (79-100); MONO # 1.8 x10^3/uL (0.0-1.1); MONO % 12 % (0-9); NEUT # 10.6 x10^3/uL (1.8-7.7); NEUT % 73 % (31-73); PLATELET COUNT 160 x10^3/uL (140-400); RED BLOOD COUNT 3.17 x10^6/uL (4.30-5.70); RED CELL DISTRIBUTION WIDTH 14.3 % (11.5-14.5); WHITE BLOOD COUNT 14.5 x10^3/uL (4.0-11.0)
--- NOTE | 2020-12-06 12:31 | RAD ---
XR CHEST 1V CLINICAL INDICATIONS: Reason: SEPSIS EVALUATION / Spl. Instructions: / History: COMPARISON: 03/28/2020. Findings: Chronic interstitial lung disease or chronic bronchitis is evident bilaterally and is uncha nged. No new lung consolidation is seen. No pleural effusion or pneumothorax is evident. The heart si ze, pulmonary vasculature, mediastinum and both ivett are unremarkable. IMPRESSION: Chronic interstitial lung disease or chronic bronchitis. Stable chest x-ray. Electronically signed by: Faraz Martin MD (12/06/2020 12:29 PM) [id number]
[2020-12-06 12:35] LABS: CALCIUM 8.1 mg/dL (8.5-10.1); CREATININE 1.5 mg/dL (0.7-1.3); GFR 46.7; POTASSIUM 5.5 mmol/L (3.5-5.1)
[2020-12-06 12:41] LABS: ALBUMIN 2.8 g/dL (3.4-5.0); ALBUMIN/GLOBULIN RATIO 0.8 (1.0-1.7); TOTAL BILIRUBIN 0.7 mg/dL (0.2-1.0); TOTAL PROTEIN 6.3 g/dL (6.4-8.2)
--- NOTE | 2020-12-06 12:44 | PHYS DOC ---
Past Medical History Past Medical History: CVA, Depression, High Cholesterol, Hypertension, Other Additional Past Medical Histor: RT hemiparesis, aphasia, PE, malnutrition, weakness, abd tenderness Past Surgical History: No Surgical History Smoking Status: Never Smoker Alcohol Use: None General Adult EDM: Chief Complaint: ABNORMAL LABS HPI: HPI: Patient is a 65 year old male with complex past medical history including stroke with right-sided hemiparesis,'s COPD expressive aphasia, communication deficits HLD, HTN who presents from [facility] with concerns for "lethargy" and a distended abdomen. Unclear timeline of symptoms. Patient states that he is having abdominal pain, but cannot comment much further. He had a work-up on 12/05 as an outpatient that showed: WBC 17.2 Hyponatremia 132 Creatinine 2.5 (unknown baseline) Normal LFTs. Review of Systems: Review of Systems: Limited ROS due to expressive aphasia, please see HPI for known details Heart Score: C/O Chest Pain: No Allergies: Allergies: Allergies Coded Allergies Type Severity Reaction Last Updated Verified No Known Medication Allergies Allergy Unknown 05/09/20 Yes Penicillins Adverse Reaction Intermediate nausea, vomiting 05/09/20 Yes Physical Exam: PE: Constitutional: Well developed, well nourished, no acute distress, non-toxic appearance. [] HENT: Normocephalic, atraumatic, bilateral external ears normal, oropharynx moist, no oral exudates, nose normal. [] Eyes: PERRLA, EOMI, conjunctiva normal, no discharge. [] Neck: Normal range of motion, no tenderness, supple, no stridor. [] Cardiovascular:Heart rate regular rhythm, no murmur [] Lungs & Thorax: Bilateral breath sounds clear to auscultation [] Abdomen: Distended, diffusely tender. Extremities: Right great toe red, erythematous, tender to the touch. Back: No tenderness, no CVA tenderness. [] Extremities: No tenderness, no cyanosis, no clubbing, ROM intact, no edema. [] Neurologic: Alert and oriented X 3, normal motor function, normal sensory function, no focal deficits noted. [] Psychologic: Affect normal, judgement normal, mood normal. [] Current Patient Data: Labs: Laboratory Tests Test 12/06/20 11:55 White Blood Count 14.5 x10^3/uL (4.0-11.0) H Red Blood Count 3.17 x10^6/uL (4.30-5.70) L Hemoglobin 9.5 g/dL (13.0-17.5) L Hematocrit 28.8 % (39.0-53.0) L Mean Corpuscular Volume 91 fL (79-100) Mean Corpuscular Hemoglobin 30 pg (25-35) Mean Corpuscular Hemoglobin Concent 33 g/dL (31-37) Red Cell Distribution Width 14.3 % (11.5-14.5) Platelet Count 160 x10^3/uL (140-400) Neutrophils (%) (Auto) 73 % (31-73) Lymphocytes (%) (Auto) 14 % (24-48) L Monocytes (%) (Auto) 12 % (0-9) H Eosinophils (%) (Auto) 1 % (0-3) Basophils (%) (Auto) 0 % (0-3) Neutrophils # (Auto) 10.6 x10^3/uL (1.8-7.7) H Lymphocytes # (Auto) 2.0 x10^3/uL (1.0-4.8) Monocytes # (Auto) 1.8 x10^3/uL (0.0-1.1) H Eosinophils # (Auto) 0.1 x10^3/uL (0.0-0.7) Basophils # (Auto) 0.0 x10^3/uL (0.0-0.2) Laboratory Tests 12/06/20 11:55 Vital Signs: Vital Signs Date Time Temp Pulse Resp B/P (MAP) Pulse Ox O2 Delivery O2 Flow Rate FiO2 12/06/20 12:00 98.8 88 22 112/73 (86) 98 Nasal Cannula 2.0 98.8 EKG: EKG: [] Radiology/Procedures: Radiology/Procedures: [] Impression: [facility] [address] [place] [address] IMAGING REPORT Signed PATIENT: GRISELDA ABDALLA ACCOUNT: [id number] : 1955 LOCATION: ER AGE: 65 SEX: M EXAM STATUS: PRE ER ORD. PHYSICIAN: BETH JENNINGS MD REASON: SEPSIS EVALUATION PROCEDURE: CHEST AP ONLY XR CHEST 1V CLINICAL INDICATIONS: Reason: SEPSIS EVALUATION / Spl. Instructions: / History: COMPARISON: 03/28/2020. Findings: Chronic interstitial lung disease or chronic bronchitis is evident bilaterally and is unchanged. No new lung consolidation is seen. No pleural effusion or pneumothorax is evident. The heart size, pulmonary vasculature, mediastinum and both ivett are unremarkable. IMPRESSION: Chronic interstitial lung disease or chronic bronchitis. Stable chest x-ray. Electronically signed by: Cristiane Martin MD (12/06/2020 12:29 PM) [id number] DICTATED and SIGNED BY: CRISTIANE MARTIN MD DATE: 12/06/20 [id number] [place] [address] IMAGING REPORT Signed PATIENT: GRISELDA ABDALLA ACCOUNT: [id number] : 1955 LOCATION: ER AGE: 65 SEX: M EXAM STATUS: PRE ER ORD. PHYSICIAN: BETH JENNINGS MD REASON: R great toe, red, swollen. AP/LATERAL ONLY DONE. PROCEDURE: TOES RIGHT XR RT TOE 2+ VIEWS History: Reason: R great toe, red, swollen. AP/LATERAL ONLY DONE. / Spl. Instructions: / History: Technique: 2 views right toes. Comparison: None. Findings: First digit soft tissue swelling. No dislocation. No acute fracture. Mild first MTP DJD. No definite radiographic evidence of osteomyelitis. No soft tissue gas tracking within the foot. Impression: 1. First digit soft tissue swelling. No definite radiographic evidence of osteomyelitis. If persistent clinical concern, MRI can further evaluate. Electronically signed by: Escobar Negro DO (12/06/2020 1:37 PM) [id number] DICTATED and SIGNED BY: ESCOBAR NEGRO DO DATE: 12/06/20 [id number] [id number] IMAGING REPORT Signed PATIENT: GRISELDA ABDALLA ACCOUNT: [id number] : 1955 LOCATION: ER AGE: 65 SEX: M EXAM STATUS: PRE ER ORD. PHYSICIAN: BETH JENNINGS MD REASON: LETHARGY, ON XARELTO PROCEDURE: CT HEAD WO CONTRAST CT HEAD/BRAIN WO Clinical indications: Reason: LETHARGY, ON XARELTO COMPARISON: July 26, 2020. Technique: Noncontrast axial cross sectional scanning of the head was performed. PQRS compliance Statement One or more of the following individualized dose reduction techniques were utilized for this study: 1. Automated exposure control 2. Adjustment of the mA and/or kV according to patient size 3. Use of iterative reconstruction technique Findings: No acute intracranial hemorrhage or midline shift or mass-effect or hydrocephalus or extra-axial fluid collection is seen. Large focus of encephalomalacia is again seen involving the left cerebral hemisphere in the distribution of the left MCA consistent with an old cortical infarct. There is associated dilatation of the adjacent left lateral ventricle as a result. Small punctate calcification is evident in this area seen previously. No new focal hypodense area or sulci effacement is seen to indicate an acute infarct or edema radiographically. No skull fracture or pneumocephalus is seen. No o pacification of the mastoid sinuses or the middle ear cavities or the paranasal sinuses is seen. The maxillary sinuses are not completely seen in this study. IMPRESSION: No acute intracranial abnormality is seen. Electronically signed by: Cristiane Martin MD (12/06/2020 1:41 PM) [id number] DICTATED and SIGNED BY: CRISTIANE MARTIN MD DATE: 12/06/20 [id number] [facility] [address] [place] [address] IMAGING REPORT Signed PATIENT: GRISELDA ABDALLA ACCOUNT: [id number] : 1955 LOCATION: ER AGE: 65 SEX: M EXAM STATUS: PRE ER ORD. PHYSICIAN: BETH JENNINGS MD REASON: ABD BLOATING, TENDER TO PALPATION DIFFUSELY, CKD PREVENTS CONTRAST PROCEDURE: CT ABDOMEN PELVIS WO CONTRAST Abdominal and Pelvis CT, Without Contrast: History: Reason: ABD BLOATING, TENDER TO PALPATION DIFFUSELY, CKD PREVENTS CONTRAST / Spl. Instructions: / History: Comparison: None. Procedure: Axial images are obtained of the abdomen and pelvis, without IV or oral contrast. Oral Contrast: No Findings: Evaluation of solid organs is limited without contrast. There is patchy opacities in the lung bases left worse than right. Liver: Hypoattenuating. Spleen: Normal. Pancreas: Pancreas is atrophic. There is a calcification within the pancreatic head which was seen previously could be secondary to old pancreatitis.. Adrenal Glands: Normal. Kidneys: Normal. There is no free air or free fluid. There is no lymphadenopathy. The prostate appears normal. The urinary bladder is fairly collapsed. Apparent mild wall thickening urinary bladder is likely hypertrophy. There is no pericolonic inflammation identified. The gallbladder is not well seen. The appendix appears normal. There is calcification of the nye of the aorta and great vessels without aneurysm. Impression: 1. Basilar pulmonary infiltrates are seen previously could be discoid atelectasis. 2. Fatty infiltration of the liver. 3. Significant atherosclerotic disease. End impression PQRS Compliance Statement: One or more of the following individualized dose reduction techniques were utilized for this examination: 1. Automated exposure control 2. Adjustment of the mA and/or kV according to patient size 3. Use of iterative reconstruction technique Electronically signed by: Sj Jamison III, MD (12/06/2020 1:46 PM) [facility] DICTATED and SIGNED BY: SJ JAMISON III, MD DATE: 12/06/20 [id number] Course & Med Decision Making: Course & Med Decision Making Pertinent Labs and Imaging studies reviewed. (See chart for details) Patient is 65-year-old male with multiple medical comorbidities on Eliquis who presents with lethargy, distended abdomen, and abdominal pain. WBC was 17 K on outpatient labs, was sent in for further evaluation from [facility]. Abdomen is distended and tender on exam. We will obtain CT abdomen pelvis, CBC, CMP, UA, blood culture, lactic. Exam also with right toe swelling, redness, tenderness. Will obtain an x-ray to evaluate for any signs of osteomyelitis. Given his reported change from mental status baseline being more somnolent and anticoagulation status, will obtain a CT head to exclude ICH. 1244 CT head negative. Chest x-ray stable. CT of the abdomen/pelvis did show lower lobe infiltrates concerning for pneumonia, but no acute pathology in the abdomen/pelvis. Toe x-ray with soft tissue edema, but no obvious signs of osteomyelitis, although this is limited. Blood pressures have come down to 77/39. We will treat with additional IV fluids and begin broad-spectrum antibiotics. UA still pending, will straight cath for specimen. Will evaluate response to fluids to determine the most appropriate level of care, the patient will require admission to the hospital. 1408 UA shows UTI, likely source. BP slightly improved with fluids, now MAP 67. Will discuss admission with Dr. Berg. 1511 Yovany Disclaimer: Yovany Disclaimer: This electronic medical record was generated, in whole or in part, using a voice recognition dictation system. Departure Departure Impression: Primary Impression: Sepsis Additional Impressions: AMS (altered mental status) Abdominal distension Pyelonephritis Disposition: ADMITTED INPATIENT Admitting Physician: Aldo Berg Condition: CRITICAL (Serious condition) Referrals: ADIS ZAVALA MD (PCP) BETH JENNINGS MD Dec 06, 2020 12:44
--- NOTE | 2020-12-06 13:39 | RAD ---
XR RT TOE 2+ VIEWS History: Reason: R great toe, red, swollen. AP/LATERAL ONLY DONE. / Spl. Instructions: / History: Technique: 2 views right toes. Comparison: None. Findings: First digit soft tissue swelling. No dislocation. No acute fracture. Mild first MTP DJD. No definite radiographic evidence of osteomyelitis. No soft tissue gas tracking within the foot. Impression: 1. First digit soft tissue swelling. No definite radiographic evidence of osteomyelitis. If persiste nt clinical concern, MRI can further evaluate. Electronically signed by: Escobar Negro DO (12/06/2020 1:37 PM) [id number]
--- NOTE | 2020-12-06 13:43 | RAD ---
CT HEAD/BRAIN WO Clinical indications: Reason: LETHARGY, ON XARELTO COMPARISON: July 26, 2020. Technique: Noncontrast axial cross sectional scanning of the head was performed. PQRS compliance Statement One or more of the following individualized dose reduction techniques were utilized for this study: 1. Automated exposure control 2. Adjustment of the mA and/or kV according to patient size 3. Use of iterative reconstruction technique Findings: No acute intracranial hemorrhage or midline shift or mass-effect or hydrocephalus or extra- axial fluid collection is seen. Large focus of encephalomalacia is again seen involving the left cere bral hemisphere in the distribution of the left MCA consistent with an old cortical infarct. There is associated dilatation of the adjacent left lateral ventricle as a result. Small punctate calcificati on is evident in this area seen previously. No new focal hypodense area or sulci effacement is seen t o indicate an acute infarct or edema radiographically. No skull fracture or pneumocephalus is seen. No opacification of the mastoid sinuses or the middle ear cavities or the paranasal sinuses is seen. The maxillary sinuses are not completely seen in this study. IMPRESSION: No acute intracranial abnormality is seen. Electronically signed by: Faraz Martin MD (12/06/2020 1:41 PM) [id number]
--- NOTE | 2020-12-06 13:49 | RAD ---
Abdominal and Pelvis CT, Without Contrast: History: Reason: ABD BLOATING, TENDER TO PALPATION DIFFUSELY, CKD PREVENTS CONTRAST / Spl. Instructi ons: / History: Comparison: None. Procedure: Axial images are obtained of the abdomen and pelvis, without IV or oral contrast. Oral Contrast: No Findings: Evaluation of solid organs is limited without contrast. There is patchy opacities in the lung bases left worse than right. Liver: Hypoattenuating. Spleen: Normal. Pancreas: Pancreas is atrophic. There is a calcification within the pancreatic head which was seen pr eviously could be secondary to old pancreatitis.. Adrenal Glands: Normal. Kidneys: Normal. There is no free air or free fluid. There is no lymphadenopathy. The prostate appears normal. The urinary bladder is fairly collapsed. Apparent mild wall thickening u rinary bladder is likely hypertrophy. There is no pericolonic inflammation identified. The gallbladder is not well seen. The appendix appears normal. There is calcification of the nye of the aorta and great vessels without aneurysm. Impression: 1. Basilar pulmonary infiltrates are seen previously could be discoid atelectasis. 2. Fatty infiltration of the liver. 3. Significant atherosclerotic disease. End impression PQRS Compliance Statement: One or more of the following individualized dose reduction techniques were utilized for this examinat ion: 1. Automated exposure control 2. Adjustment of the mA and/or kV according to patient size 3. Use of iterative reconstruction technique Electronically signed by: Александр Will III, MD (12/06/2020 1:46 PM) [facility]
[2020-12-06] MEDS ORDERED: CEFEPIME HCL IV Push 2 GM VIAL. IVP ONE (14:15)
[2020-12-06 14:29] LABS: BILIRUBIN,URINE NEGATIVE (NEG); CLARITY,URINE CLOUDY; COLOR,URINE YELLOW; NITRITE,URINE NEGATIVE (NEG); PH,URINE 5.5 (<5.0-8.0); PROTEIN,URINE NEGATIVE (NEG-TRACE)
[2020-12-06] MEDS ORDERED: IV NORMAL SALINE 1000ML BAG 1,000 ML IV ONE (14:30)
--- NOTE | 2020-12-06 14:33 | EKG ---
[facility] [address] [place] [address] Test Date: 2020-12-06 Test Time: 13:07:36 Pat Name: GRISELDA ABDALLA Department: Room: Gender: M [employer]: : 1955 Requested By: BETH JENNINGS Order Number: [id number] Reading MD: Polo Summers MD Measurements Intervals [place] Rate: 89 P: 62 ME: 152 QRS: -13 QRSD: 84 T: 28 QT: 326 QTc: 398 Interpretive Statements SINUS RHYTHM Electronically Signed On 12-09-2020 11:12:52 CDT by Polo Summers MD
[2020-12-06 14:39] LABS: HYALINE CASTS, URINE MANY /HPF
[2020-12-06 14:41] LABS: BACTERIA,URINE 0 /HPF (0-FEW); RBC,URINE 0 /HPF (0-2); WBC,URINE TNTC /HPF (0-4)
[2020-12-06 14:43] LABS: YEAST,URINE PRESENT /HPF
[2020-12-06] MEDS ORDERED: VANCOMYCIN 2 GM in IV NORMAL SALINE 500ML BAG 500 ML IV ONE (15:00)
--- NOTE | 2020-12-06 16:35 | NUR ---
Arrived to unit by cart from ER. Alert but expressive aphasic. O2 at 2l per n/c. IVF's intact and infusing. Side rails up x's 2 with call light in reach. No c/o at this time.
[2020-12-06 16:45] VITALS: BP 100/46
[2020-12-06 19:00] VITALS: BP 104/56
[2020-12-06] MEDS: VANCOMYCIN PER PHARMACY MC PRN (19:49)
[2020-12-06] MEDS: IV NORMAL SALINE 1000ML BAG 1,000 ML IV SCH ×3 (20:20→20:51)
[2020-12-06] MEDS: CEFEPIME HCL IV Push 2 GM VIAL. IVP SCH (20:51)
[2020-12-06 23:00] VITALS: BP 116/56
--- NOTE | 2020-12-07 01:24 | NUR ---
Third call placed in attempt to get pt's med list from [facility]. Will update pt's med rec when fax received.
[2020-12-07] MEDS ORDERED: DULO30CA2 PO (01:56)
[2020-12-07] MEDS ORDERED: MIRT-8 PO (01:56)
[2020-12-07] MEDS ORDERED: ERGO2000 PO (01:56)
[2020-12-07] MEDS ORDERED: LISI20TA18 PO (01:56)
[2020-12-07] MEDS ORDERED: TRAM50TA PO (01:56)
[2020-12-07] MEDS ORDERED: ALBU2.5V5 NEB (01:56)
[2020-12-07] MEDS ORDERED: PREG100C PO (01:56)
[2020-12-07] MEDS ORDERED: ONDA4TAB7 PO (01:56)
[2020-12-07] MEDS ORDERED: BUSP5TAB PO (01:56)
[2020-12-07] MEDS ORDERED: NIAC500C6 PO (01:56)
[2020-12-07] MEDS ORDERED: ALBUTEROL SULFATE 2.5 MG/3 ML NEBU. NEB PRN (02:00)
[2020-12-07] MEDS ORDERED: MAGNESIUM HYDROXIDE 2,400 MG/30 ML ORAL.SUSP. PO PRN (02:00)
[2020-12-07] MEDS: IV NORMAL SALINE 1000ML BAG 1,000 ML IV SCH ×3 (02:03→11:30)
[2020-12-07] MEDS ORDERED: ONDANSETRON ODT 4 MG TAB.RAPDIS. PO PRN (02:15)
[2020-12-07 03:07] VITALS: BP 112/57
[2020-12-07 07:00] VITALS: BP 110/48
[2020-12-07 08:42] LABS: CREATININE 0.9 mg/dL (0.7-1.3); GFR 84.2
[2020-12-07] MEDS: POLYETHYLENE GLYCOL 3350 17 GM PACKET. PO SCH (09:00)
[2020-12-07] MEDS: DULoxetine HCL 30 MG CAPSULE.DR PO SCH ×2 (09:32→21:48)
[2020-12-07] MEDS: LACTOBACILLUS RHAMNOSUS GG 1 CAPSULE. PO SCH ×2 (09:32→21:47)
[2020-12-07] MEDS: ASPIRIN CHEWABLE 81 MG TABLET. PO SCH (09:33)
[2020-12-07] MEDS: busPIRone 5 MG TABLET. PO SCH ×3 (09:33→21:48)
[2020-12-07] MEDS: PREGABALIN 50 MG CAPSULE PO SCH ×3 (09:36→21:47)
[2020-12-07] MEDS: RIVAROXABAN 10 MG TABLET. PO SCH (09:36)
[2020-12-07] MEDS: NIACIN ER 250 MG CAPSULE.ER PO SCH ×2 (09:37→21:46)
[2020-12-07] MEDS: traMADol 50 MG TABLET PO SCH ×3 (09:40→21:47)
[2020-12-07] MEDS: CEFEPIME HCL IV Push 2 GM VIAL. IVP SCH ×3 (09:56→21:46)
[2020-12-07 11:00] VITALS: BP 120/56
[2020-12-07 15:00] VITALS: BP 103/54
[2020-12-07] MEDS ORDERED: VANCOMYCIN 1.75 GM in IV NORMAL SALINE 500ML BAG 500 ML IV SCH (15:00)
[2020-12-07] MEDS: VANCOMYCIN PER PHARMACY MC PRN (16:54)
--- NOTE | 2020-12-07 16:55 | NUR ---
Pharmacy Vancomycin Dosing Note S: Consulted to monitor and dose vancomycin started 12/06/20. O: GRISELDA ABDALLA is a 65 year old M with pneumonia, pyelonephritis. Other Antibiotics: CEFEPIME 2G IV Q8HRS LABS: Last BUN: 35 Last Creatinine: 0.9 Creatinine Clearance: 76 mL/min Last WBC: 14.5 Last Procalcitonin: Tmax (past 24 hours): 99.4 Microbiology: URINE CX (12/06): PENDING A: Patient initiated on vancomycin 1750 mg IV q 24hrs. His renal function is significantly improved today. Will change to the following: P: 1. Change to Vancomycin 1750 mg IV q18h 2. Follow up Trough level on 12/08/20 at 0930 3. Pharmacy will continue to monitor, follow and adjust therapy as needed. KYLAH VARGAS [facility], 12/07/20 [id number]
[2020-12-07 19:00] VITALS: BP 101/51
[2020-12-07] MEDS: SENNOSIDES/DOCUSATE 8.6/50MG TABLET. PO SCH ×2 (21:00→21:47)
[2020-12-07] MEDS: MIRTAZAPINE 15 MG TABLET PO SCH (21:47)
[2020-12-07] MEDS: ATORVASTATIN CALCIUM 40 MG TABLET. PO SCH (21:48)
[2020-12-07 23:03] VITALS: BP 93/40
[2020-12-08 03:13] VITALS: BP 101/47
--- NOTE | 2020-12-08 03:28 | HP ---
DATE OF SERVICE: 12/07/2020 ADMIT DATE: 12/06/2020 CHIEF COMPLAINT AND HISTORY OF PRESENT ILLNESS: This 65-year-old residential resident, was seen by myself on the day of admission at the residential. The patient was having decreased mental status, compared to his normal, was having a palpable abdominal pain in his right mid to lower quadrant. Laboratory done the day before showed acute renal failure with his creatinine up to 2.5. He was sent to the emergency room where he was felt to have a urinary tract infection, negative CT abdomen and pelvis and admitted for IV antibiotics and further treatment. PAST MEDICAL HISTORY: Remarkable for stroke with right hemiparesis, COPD, expressive aphasia, hyperlipidemia, hypertension, depression, malnutrition. PAST SURGICAL HISTORY: Unremarkable. MEDICATIONS: Brought with the patient, listed on computer have been addressed. ALLERGIES: HE IS ALLERGIC TO PENICILLIN. SOCIAL HISTORY: Nonsmoker, nondrinker, does not use drugs. senior living resident. FAMILY HISTORY: Noncontributory. REVIEW OF SYSTEMS: Unobtainable due to his speech deficits. PHYSICAL EXAMINATION: GENERAL: He is a well-developed, well-nourished male who appears nontoxic. VITAL SIGNS: Stable. He is afebrile. HEAD, EYES, EARS, NOSE AND THROAT: Unremarkable. NECK: Supple, thyromegaly. CHEST: Clear to auscultation. HEART: Regular rate and rhythm without S3, S4 or murmur. ABDOMEN: Slightly distended, tender mid to right lower quadrant. EXTREMITIES: Without cyanosis, clubbing or edema. NEUROLOGIC: Remarkable for the hemiparesis and aphasia. LABORATORY DATA: Initial white count is 14,500 with a left shift. Creatinine is 1.5, which is actually down from the 2.5 the day prior to admission when checked. Sodium is low at 131, potassium slightly elevated at 5.5. Urinalysis shows too numerous to count white blood cells, large leukocyte esterase. IMPRESSION: 1. Urinary tract infection with mental status change, abdominal pain, likely pyelonephritis with sepsis. 2. Multiple other problems listed above. PLAN: The patient has been admitted. Antibiotics will be continued until cultures further therapy. He does appear a little bit better this morning than he did yesterday when I saw him in the residential. We will follow along for his renal function as well as electrolyte abnormalities. FABIOLA/PARISH DR: Kannan TID: [id number]
[2020-12-08] MEDS: IV NORMAL SALINE 1000ML BAG 1,000 ML IV SCH ×2 (05:12→11:30)
[2020-12-08] MEDS: CEFEPIME HCL IV Push 2 GM VIAL. IVP SCH ×3 (05:15→21:58)
[2020-12-08 07:00] VITALS: BP 96/46
[2020-12-08] MEDS: POLYETHYLENE GLYCOL 3350 17 GM PACKET. PO SCH (09:00)
[2020-12-08] MEDS: LACTOBACILLUS RHAMNOSUS GG 1 CAPSULE. PO SCH ×2 (09:05→21:34)
[2020-12-08] MEDS: ASPIRIN CHEWABLE 81 MG TABLET. PO SCH (09:05)
[2020-12-08] MEDS: NIACIN ER 250 MG CAPSULE.ER PO SCH ×2 (09:05→21:33)
[2020-12-08] MEDS: traMADol 50 MG TABLET PO SCH ×3 (09:06→21:38)
[2020-12-08] MEDS: busPIRone 5 MG TABLET. PO SCH ×3 (09:06→21:34)
[2020-12-08] MEDS: RIVAROXABAN 10 MG TABLET. PO SCH (09:06)
[2020-12-08] MEDS: DULoxetine HCL 30 MG CAPSULE.DR PO SCH ×2 (09:06→21:34)
[2020-12-08] MEDS: PREGABALIN 50 MG CAPSULE PO SCH ×3 (09:06→21:34)
[2020-12-08] MEDS ORDERED: VANCOMYCIN 1.75 GM in IV NORMAL SALINE 500ML BAG 500 ML IV SCH (09:30)
[2020-12-08 10:24] LABS: VANC TR 26.3 mcg/mL (10.0-20.0)
[2020-12-08 10:28] LABS: BASO % 0 % (0-3); EOS # 0.4 x10^3/uL (0.0-0.7); EOS % 5 % (0-3); HEMATOCRIT 33.1 % (39.0-53.0); LYMPH # 2.1 x10^3/uL (1.0-4.8); LYMPH % 29 % (24-48); MEAN CORPUSCULAR HEMOGLOBIN 30 pg (25-35); MEAN CORPUSCULAR HGB CONC 33 g/dL (31-37); MEAN CORPUSCULAR VOLUME 90 fL (79-100); MONO # 1.2 x10^3/uL (0.0-1.1); MONO % 17 % (0-9); NEUT # 3.5 x10^3/uL (1.8-7.7); NEUT % 49 % (31-73); PLATELET COUNT 180 x10^3/uL (140-400); RED BLOOD COUNT 3.66 x10^6/uL (4.30-5.70); RED CELL DISTRIBUTION WIDTH 14.6 % (11.5-14.5); WHITE BLOOD COUNT 7.3 x10^3/uL (4.0-11.0)
[2020-12-08 10:59] LABS: CALCIUM 7.7 mg/dL (8.5-10.1); CREATININE 0.8 mg/dL (0.7-1.3); GFR 96.4; POTASSIUM 3.7 mmol/L (3.5-5.1)
[2020-12-08 11:00] VITALS: BP 109/57
--- NOTE | 2020-12-08 12:14 | PN ---
DATE: 12/08/2020 LOCATION: He is in room 576. SUBJECTIVE: This 65-year-old male remains hospitalized with mental status change, abdominal pain, acute renal failure, all felt due to urinary tract infection. He does indicate that he feels better at this point in time. OBJECTIVE: VITAL SIGNS: Stable. He is afebrile. CHEST: Clear. HEART: Regular. ABDOMEN: Benign. LABORATORY DATA: I can find no urine culture ongoing at this time and I have asked nursing to track that down. He does have a high vancomycin level and pharmacy is adjusting the same. Creatinine is decreased to 0.9, which is his baseline. White count has fallen from 14,500 to 7300 with resolution of his left shift, suggesting good antibiotic coverage, which is probably the Zosyn and probably does not need the vancomycin, but would like to see urine culture prior. ASSESSMENT: 1. Urinary tract infection with mental status change, acute renal failure, abdominal pain. 2. Status post cerebrovascular accident. 3. Aphasia. PLAN: Continue present antibiotics. Await urine cultures. Transition to p.o. when able. [place] DR: Kannan TID: [id number]
[2020-12-08 15:00] VITALS: BP 105/55
[2020-12-08] MEDS: VANCOMYCIN PER PHARMACY MC PRN (16:43)
--- NOTE | 2020-12-08 16:44 | NUR ---
Pharmacy Vancomycin Dosing Note S:Consulted to monitor and dose vancomycin started 12/06/20. O:GRISELDA ABDALLA is a 65 year old M with pyelonephritis. Height: 5 feet, 6 inches Weight: 96.8 kg Dosing Weight: Actual Other Antibiotics: CEFEPIME 2G IV Q8HRS LABS: Last BUN: 10 Last Creatinine: 0.8 Creatinine Clearance: 78 mL/min Last WBC: 7.3 Last Procalcitonin: - Tmax (past 24 hours): 99.4 Microbiology: URINE CX (12/06): RIGOBERTO ALB I/O: 120/5 voids Drug Levels: Last level: 26.3 on 12/08/20 at 0935 Last dose given 12/07/20 at 1623 Vancomycin Dosing: Loading Dose: 2000 mg x1 Dosing Weight: Actual Target Trough: 15-20 A: Patient is receiving vancomycin 1750 mg IV q18hrs. A trough of 26.3 mcg/ml is above goal range, however due to charting of bag and timing of trough level, difficult to assume this is a correct value. Patient received vancomycin for approximately 1hr today prior to trough level result. Renal function continues to improve. P: 1. HOLD vancomycin doses for 12/08 - of note pt received about 1hr of vancomycin 2. Follow up random level on 12/09/20 at 0830 3. Pharmacy will continue to monitor, follow and adjust therapy as needed. KYLAH VARGAS [facility], 12/08/20 0089
[2020-12-08 19:00] VITALS: BP 102/51
[2020-12-08] MEDS: MIRTAZAPINE 15 MG TABLET PO SCH (21:34)
[2020-12-08] MEDS: ATORVASTATIN CALCIUM 40 MG TABLET. PO SCH (21:34)
[2020-12-08] MEDS: SENNOSIDES/DOCUSATE 8.6/50MG TABLET. PO SCH (21:39)
[2020-12-08 23:41] VITALS: BP 117/54
[2020-12-09] MEDS: IV NORMAL SALINE 1000ML BAG 1,000 ML IV SCH ×2 (00:50→12:17)
[2020-12-09 03:21] VITALS: BP 96/45
[2020-12-09] MEDS: CEFEPIME HCL IV Push 2 GM VIAL. IVP SCH ×3 (06:16→20:30)
[2020-12-09 07:00] VITALS: BP 99/48
[2020-12-09] MEDS ORDERED: VANCOMYCIN RANDOM LEVEL. MC ONE (08:30)
[2020-12-09] MEDS: NIACIN ER 250 MG CAPSULE.ER PO SCH ×2 (10:10→20:24)
[2020-12-09] MEDS: busPIRone 5 MG TABLET. PO SCH ×3 (10:11→20:26)
[2020-12-09] MEDS: PREGABALIN 50 MG CAPSULE PO SCH ×3 (10:11→20:27)
[2020-12-09] MEDS: traMADol 50 MG TABLET PO SCH ×3 (10:11→20:25)
[2020-12-09] MEDS: LACTOBACILLUS RHAMNOSUS GG 1 CAPSULE. PO SCH ×2 (10:11→20:25)
[2020-12-09] MEDS: ASPIRIN CHEWABLE 81 MG TABLET. PO SCH (10:11)
[2020-12-09] MEDS: DULoxetine HCL 30 MG CAPSULE.DR PO SCH ×2 (10:11→20:26)
[2020-12-09] MEDS: POLYETHYLENE GLYCOL 3350 17 GM PACKET. PO SCH (10:12)
[2020-12-09] MEDS: VANCOMYCIN PER PHARMACY MC PRN (10:13)
--- NOTE | 2020-12-09 10:14 | NUR ---
Pharmacy Vancomycin Dosing Note S: Consulted to monitor and dose vancomycin started 12/06/20. O: GRISELDA ABDALLA is a 65 year old M with pyelonephritis. Other Antibiotics: CEFEPIME 2G IV Q8HRS LABS: Last BUN: 10 Last Creatinine: 0.8 Creatinine Clearance: 78 mL/min Last WBC: 7.3 Last Procalcitonin: - Tmax (past 24 hours): 998.5 Microbiology: URINE CX (12/06): RIGOBERTO ALB I/O: 120/5 voids Drug Levels: Last Random level: 13.3 on 12/09/20 at 0830 Last dose given 12/08/20 at 1000 Vancomycin Dosing: Dosing Weight: Actual Target Trough: 10-20 A: Patient was receiving vancomycin 1750 mg IV q18hrs. A trough level of 26 was above therapeutic range. Vancomycin dose was given for approximately 1hr until this level was resulted, then bag was stopped. A random level today, 24hrs post-infusion, was 13.3 mcg/ml and within goal range. Renal function has improved throughout stay. P: 1. Change to Vancomycin 1750 mg IV q24h 2. Follow up trough level in 5 days or if changes in renal function occur 3. Pharmacy will continue to monitor, follow and adjust therapy as needed. KYLAH VARGAS, [facility], 12/09/20 [id number]
[2020-12-09] MEDS: RIVAROXABAN 10 MG TABLET. PO SCH (10:16)
[2020-12-09 11:00] VITALS: BP 110/55
[2020-12-09] MEDS ORDERED: VANCOMYCIN 1.75 GM in IV NORMAL SALINE 500ML BAG 500 ML IV SCH (11:00)
[2020-12-09] MEDS: ANTI-COAG MONITOR BY PHARMACY. MC PRN (11:34)
--- NOTE | 2020-12-09 13:01 | NUR ---
SS following for discharge planning. SS reviewed pt chart and discussed with pt RN. Pt is [facility] resident from [facility], ; fax [phone]. Pt is currently requiring oxygen at two liters nasal canula. Pt on IV Vancomycin and IV Cefepime. Clinical updates phoned and faxed to [facility]. SS will continue to follow for discharge planning.
[2020-12-09 15:00] VITALS: BP 102/47
[2020-12-09 19:00] VITALS: BP 106/53
[2020-12-09] MEDS: MIRTAZAPINE 15 MG TABLET PO SCH (20:25)
[2020-12-09] MEDS: SENNOSIDES/DOCUSATE 8.6/50MG TABLET. PO SCH (20:25)
[2020-12-09] MEDS: ATORVASTATIN CALCIUM 40 MG TABLET. PO SCH (20:25)
[2020-12-09] MEDS: ACETAMINOPHEN 325 MG TABLET. PO PRN (20:26)
--- NOTE | 2020-12-09 21:04 | PN ---
DATE: 12/09/2020 DAILY PROGRESS NOTE LOCATION: He is in room 576. SUBJECTIVE: This 65-year-old male remains hospitalized with mental status changes, abdominal pain, acute renal failure, all felt due to urinary tract infection; however, now his urine is growing out Liz. He does indicate that he feels better on a daily basis. OBJECTIVE: VITAL SIGNS: Stable. He is afebrile. CHEST: Clear. HEART: Regular. ABDOMEN: Benign. LABORATORY DATA: Again, urine culture is growing out Liz. His acute kidney injury has resolved. White count has decreased from 14,000-7000 with resolution of his left shift. He has improved clinically and I am not sure at this point what I am treating for sure. He does have a wound on his right great toe that is a little bit red, but does not seem to me that it would be the source of all this, but I am going to ask ID for opinion on further treatment. ASSESSMENT: 1. As outlined above with mental status change. 2. Acute renal failure. 3. Abdominal pain, all improved with antibiotics. 4. Yeast urinary tract infection. 5. Status post cerebrovascular accident. 6. Aphasia. PLAN: Continue present antibiotics as per ID help. Again I do not think the toe would be the source, but we will get ID for opinion on the same. CLARICE BENOIT: Kannan TID: [id number]
[2020-12-09 23:00] VITALS: BP 106/51
[2020-12-10 03:00] VITALS: BP 103/48
[2020-12-10] MEDS: IV NORMAL SALINE 1000ML BAG 1,000 ML IV SCH ×2 (03:30→20:13)
[2020-12-10] MEDS: CEFEPIME HCL IV Push 2 GM VIAL. IVP SCH ×3 (06:02→21:40)
[2020-12-10 07:00] VITALS: BP 122/56
[2020-12-10] MEDS: LACTOBACILLUS RHAMNOSUS GG 1 CAPSULE. PO SCH ×2 (08:20→20:18)
[2020-12-10] MEDS: ASPIRIN CHEWABLE 81 MG TABLET. PO SCH (08:21)
[2020-12-10] MEDS: RIVAROXABAN 10 MG TABLET. PO SCH (08:21)
[2020-12-10] MEDS: NIACIN ER 250 MG CAPSULE.ER PO SCH ×2 (08:21→20:19)
[2020-12-10] MEDS: busPIRone 5 MG TABLET. PO SCH ×3 (08:21→20:18)
[2020-12-10] MEDS: DULoxetine HCL 30 MG CAPSULE.DR PO SCH ×2 (08:21→20:18)
[2020-12-10] MEDS: PREGABALIN 50 MG CAPSULE PO SCH ×3 (08:22→20:19)
[2020-12-10] MEDS: traMADol 50 MG TABLET PO SCH ×3 (08:23→20:20)
[2020-12-10] MEDS: POLYETHYLENE GLYCOL 3350 17 GM PACKET. PO SCH (08:24)
[2020-12-10 11:00] VITALS: BP 111/60
--- NOTE | 2020-12-10 11:21 | NUR ---
SS following up with discharge planning. SS reviewed pt chart and discussed with pt RN. Pt is LT resident from [place], ; fax [phone]. Pt is currently requiring oxygen at two liters nasal canula. Pt on IV Micafungin, PO Doxycycline, and IV Cefepime. SS will continue to follow for discharge planning.
[2020-12-10] MEDS: MICAFUNGIN 100 MG in IV DEXTROSE 5% 100ML 100 ML IV SCH (11:38)
[2020-12-10] MEDS: DOXYCYCLINE HYCLATE 100 MG TABLET PO SCH ×2 (11:38→20:20)
--- NOTE | 2020-12-10 11:53 | CONS ---
DATE OF CONSULTATION: 12/10/2020 REFERRING PHYSICIAN: Dr. Berg. REASON FOR CONSULTATION: Urosepsis. HISTORY OF PRESENT ILLNESS: A 65-year-old [facility] resident with history of CVA, hemiparesis, expressive aphasia, hyperlipidemia, hypertension, depression, malnutrition, was [facility] from the [facility] due to abnormal labs with a creatinine upto 2.5 and decreased level of consciousness. Pt is not a good historian. Histroy obtained from chart and medical staff. The patient was found to have pyuria. CT abdomen and pelvis was negative for acute changes. The patient is currently on cefepime and IV vancomycin. ID consultation has been requested for antibiotic management. PAST MEDICAL HISTORY: Stroke with hemiparesis, COPD, expressive aphasia, hypertension, hyperlipidemia, depression, malnutrition. PAST SURGICAL HISTORY: As per HPI. CURRENT MEDICATIONS: IV vancomycin, cefepime. Other medications reviewed in medication list. ALLERGIES: PENICILLIN. SOCIAL HISTORY: Nonsmoker, nondrinker, no drugs. prison resident. FAMILY HISTORY: As per HPI. REVIEW OF SYSTEMS: Negative though limited due to speech deficits. He denies any fevers, chills, nausea, vomiting, diarrhea. Wears brief. Did have right toe pain, but says it is improving. PHYSICAL EXAMINATION: VITAL SIGNS: Temperature 97.7, respiratory rate 18, blood pressure 122/56, oxygen saturation 97% on 2 liters O2 by nasal cannula. GENERAL: Alert, awake male, well developed, well nourished, in no acute distress, nontoxic appearing. HEENT: Normocephalic, atraumatic. Anicteric. Dentition fair. No thrush. NECK: Supple, no JVD. LUNGS: Clear bilaterally. HEART: S1, S2. No murmurs. ABDOMEN: Soft, nontender, nondistended, no rebound or guarding. GENITOURINARY: No Monroe. Brief is in place. EXTREMITIES: No edema, no cyanosis. NEUROLOGIC: Hemiparesis, aphasia. MUSCULOSKELETAL: Right great toe swelling improved. Redness improved. Pain is improved. Mycotic toenails, possible early developing paronychia. LABORATORY DATA: WBC 7.3, was 14.5; hemoglobin 11; platelets 160. Creatinine 1.5, repeat is 0.6. Lactate 1.0. Sodium 131. UA shows large leukocyte esterase, wbc too numerous to count. MICRO: Urine culture 80,000 CFU of Liz albicans. IMPRESSION: 1. Leukocytosis. 2. Pyuria. Urine culture with C. albicans. Could be colonization 3. H/O Cerebrovascular accident with hemiparesis. 4. Acute kidney injury. 5. Right great toe swelling, possible early paronychia. 6. Mycotic toenails. 7.HYponatremia RECOMMENDATIONS: 1. Discontinue IV vancomycin due to SOL. 2. Start doxycycline. 3. Continue cefepime. 4. Add micafungin for now. 5. The patient may need a Podiatry consult. 6. Local wound care. 7. Monitor labs and cultures. 8. Continue supportive care. 9. Discussed with RN. Thank you for allowing me to participate in this patient's care. If you have any questions, do not hesitate to contact me. LUDIVINA/PARISH BENOIT: Padilla TID: [id number] MTDCharlotte
[2020-12-10] MEDS: ANTI-COAG MONITOR BY PHARMACY. MC PRN (12:03)
--- NOTE | 2020-12-10 13:38 | PN ---
DATE: 12/10/2020 LOCATION: He is in room 576. SUBJECTIVE: This 65-year-old male remains hospitalized with mental status change, abdominal pain, acute renal failure, all felt due to urinary tract infection, but now urine is growing out Liz. He does continue to indicate that he feels better. OBJECTIVE: VITAL SIGNS: Stable. He is afebrile. CHEST: Clear. HEART: Regular. ABDOMEN: Benign. EXTREMITIES: His right great toe is somewhat red, but does not seem to me that this would be what we are treating, but I am not sure what we are treating, but definitely he is improved with the antibiotics and I am afraid to stop them without ID to come by, which they should be by the day as they were consulted. IMPRESSION: Acute renal failure, abdominal pain, yeast urinary tract infection, status post cerebrovascular accident, aphasia. PLAN: Continue antibiotics and await ID opinion. LUCY/PARISH DR: Kannan TID: [id number]
[2020-12-10 15:00] VITALS: BP_SYST 123
[2020-12-10 19:49] VITALS: BP 145/56
[2020-12-10] MEDS: ATORVASTATIN CALCIUM 40 MG TABLET. PO SCH (20:18)
[2020-12-10] MEDS: SENNOSIDES/DOCUSATE 8.6/50MG TABLET. PO SCH (20:18)
[2020-12-10] MEDS: ACETAMINOPHEN 325 MG TABLET. PO PRN (20:18)
[2020-12-10] MEDS: MIRTAZAPINE 15 MG TABLET PO SCH (20:20)
[2020-12-10 23:26] VITALS: BP 120/53
[2020-12-11 03:27] VITALS: BP 129/59
[2020-12-11] MEDS: CEFEPIME HCL IV Push 2 GM VIAL. IVP SCH ×3 (05:01→21:26)
[2020-12-11] MEDS: IV NORMAL SALINE 1000ML BAG 1,000 ML IV SCH (05:01)
[2020-12-11 07:00] VITALS: BP 140/58
--- NOTE | 2020-12-11 08:41 | PDOC ---
Infectious Disease Note Subjective: Subjective Pt without complaints Vital Signs: Vital Signs Vital Signs Date Time Temp Pulse Resp B/P (MAP) Pulse Ox O2 Delivery O2 Flow Rate FiO2 12/11/20 07:00 97.4 81 18 140/58 (85) 94 Nasal Cannula 2.0 97.4 Physical Exam: PHYSICAL EXAM GENERAL: Alert, awake male, well developed, well nourished, in no acute distress, nontoxic appearing. HEENT: Normocephalic, atraumatic. Anicteric. Dentition fair. No thrush. NECK: Supple, no JVD. LUNGS: Clear bilaterally. HEART: S1, S2. No murmurs. ABDOMEN: Soft, nontender, nondistended, no rebound or guarding. GENITOURINARY: No Monroe. Brief is in place. EXTREMITIES: No edema, no cyanosis. NEUROLOGIC: Hemiparesis, aphasia. MUSCULOSKELETAL: Right great toe swelling and erythema improved. Possible early developing paronychia No purulent drainage, dystrophic and mycotic right great toenail Medications: Inpatient Meds: Medications reviewed. Objective: Assessment: 1. Leukocytosis. Resolved 2. Pyuria. Urine culture with C. albicans. Could be colonization 3. H/O Cerebrovascular accident with hemiparesis. 4. Acute kidney injury. 5. Right great toe swelling, pain, possible early paronychia. 6. Mycotic toenails. 7.HYponatremia Plan: Plan of Care Continue cefepime, doxycycline and micafungin Local wound care Follow-up labs and cultures Patient may need podiatry consult for right great toe Continue supportive care ELISSA SHAH MD Dec 11, 2020 08:40
[2020-12-11] MEDS: NIACIN ER 250 MG CAPSULE.ER PO SCH ×2 (09:22→21:26)
[2020-12-11] MEDS: ASPIRIN CHEWABLE 81 MG TABLET. PO SCH (09:22)
[2020-12-11] MEDS: PREGABALIN 50 MG CAPSULE PO SCH ×3 (09:22→21:27)
[2020-12-11] MEDS: DULoxetine HCL 30 MG CAPSULE.DR PO SCH ×2 (09:23→21:28)
[2020-12-11] MEDS: LACTOBACILLUS RHAMNOSUS GG 1 CAPSULE. PO SCH ×2 (09:23→21:27)
[2020-12-11] MEDS: busPIRone 5 MG TABLET. PO SCH ×3 (09:23→21:27)
[2020-12-11] MEDS: traMADol 50 MG TABLET PO SCH ×3 (09:23→21:28)
[2020-12-11] MEDS: RIVAROXABAN 10 MG TABLET. PO SCH (09:23)
[2020-12-11] MEDS: DOXYCYCLINE HYCLATE 100 MG TABLET PO SCH ×2 (09:23→21:28)
[2020-12-11] MEDS: POLYETHYLENE GLYCOL 3350 17 GM PACKET. PO SCH (09:25)
[2020-12-11 11:00] VITALS: BP 131/62
[2020-12-11] MEDS: MICAFUNGIN 100 MG in IV DEXTROSE 5% 100ML 100 ML IV SCH (12:25)
[2020-12-11 15:00] VITALS: BP 124/66
--- NOTE | 2020-12-11 15:52 | NUR ---
SS following up with discharge planning. SS reviewed pt chart and discussed with pt RN. Pt is currently requiring oxygen at two liters nasal canula. Pt on IV Micafungin, PO Doxycycline, and IV Cefepime. Pt is [facility] resident from [place], ; fax [phone]. SS will continue to follow for discharge planning.
[2020-12-11 19:00] VITALS: BP 128/60
[2020-12-11] MEDS: SENNOSIDES/DOCUSATE 8.6/50MG TABLET. PO SCH (21:00)
[2020-12-11] MEDS: MIRTAZAPINE 15 MG TABLET PO SCH (21:27)
[2020-12-11] MEDS: ATORVASTATIN CALCIUM 40 MG TABLET. PO SCH (21:29)
--- NOTE | 2020-12-11 21:48 | PN ---
DATE: 12/11/2020 LOCATION: He is in room 576. SUBJECTIVE: This 65-year-old male remains hospitalized with infection, acute kidney injury, yeast urinary tract infection. He is gradually feeling better. OBJECTIVE: VITAL SIGNS: Stable. He is afebrile. CHEST: Clear. HEART: Regular. ABDOMEN: Benign. Right great toe remained somewhat red. We will ask for Podiatry consult tomorrow. ID help appreciated with ongoing antibiotics. IMPRESSION: Acute renal failure, abdominal pain, yeast urinary tract infection, status post cerebrovascular accident, aphasia. PLAN: Continue present antibiotics and Podiatry consult. JANIA DR: Kannan TID: [id number]
[2020-12-11 23:04] VITALS: BP 132/62
[2020-12-12] MEDS: IV NORMAL SALINE 1000ML BAG 1,000 ML IV SCH ×2 (01:04→10:28)
[2020-12-12 03:04] VITALS: BP 119/49
[2020-12-12] MEDS: CEFEPIME HCL IV Push 2 GM VIAL. IVP SCH ×2 (06:00→14:08)
[2020-12-12 07:00] VITALS: BP 109/89
--- NOTE | 2020-12-12 08:27 | PDOC ---
Infectious Disease Note Subjective: Subjective Pt without complaints except he feels tired today He did not eat breakfast this morning No acute issues per discussion with nursing staff Vital Signs: Vital Signs Vital Signs Date Time Temp Pulse Resp B/P (MAP) Pulse Ox O2 Delivery O2 Flow Rate FiO2 12/12/20 07:00 98.0 90 20 109/89 (96) 95 Nasal Cannula 98.0 12/11/20 21:58 2.0 Physical Exam: PHYSICAL EXAM GENERAL: Alert, awake male, well developed, well nourished, in no acute distress, nontoxic appearing. HEENT: Normocephalic, atraumatic. Anicteric. Dentition fair. No thrush. NECK: Supple, no JVD. LUNGS: Clear bilaterally. HEART: S1, S2. No murmurs. ABDOMEN: Soft, nontender, nondistended, no rebound or guarding. GENITOURINARY: No Monroe. Brief is in place. EXTREMITIES: No edema, no cyanosis. NEUROLOGIC: Hemiparesis, aphasia.alert awake MUSCULOSKELETAL: Right great toe swelling and erythema improved. Possible early developing paronychia Improving. No purulent drainage, dystrophic and mycotic right great toenail Medications: Inpatient Meds: Medications reviewed. Objective: Assessment: 1. Leukocytosis. Resolved 2. Pyuria. Urine culture with C. albicans. Could be colonization 3. H/O Cerebrovascular accident with hemiparesis. 4. Acute kidney injury. 5. Right great toe swelling, pain, possible early paronychia. 6. Mycotic toenails. 7.HYponatremia Plan: Plan of Care Continue cefepime,and micafungin for today and then DC Continue doxycycline for 5 more days Local wound care Follow-up labs and cultures Patient may need podiatry consult for right great toe, can be done as outpatient for right great toe nail treatment And can be discharged detention from ID standpoint Continue supportive care Discussed with nursing staff ELISSA SHAH MD Dec 12, 2020 08:27
[2020-12-12] MEDS: ASPIRIN CHEWABLE 81 MG TABLET. PO SCH (08:58)
[2020-12-12] MEDS: DULoxetine HCL 30 MG CAPSULE.DR PO SCH ×2 (08:58→21:26)
[2020-12-12] MEDS: PREGABALIN 50 MG CAPSULE PO SCH ×3 (08:58→21:26)
[2020-12-12] MEDS: RIVAROXABAN 10 MG TABLET. PO SCH (08:58)
[2020-12-12] MEDS: traMADol 50 MG TABLET PO SCH ×3 (08:58→21:28)
[2020-12-12] MEDS: busPIRone 5 MG TABLET. PO SCH ×3 (08:58→21:27)
[2020-12-12] MEDS: DOXYCYCLINE HYCLATE 100 MG TABLET PO SCH ×2 (08:58→21:28)
[2020-12-12] MEDS: LACTOBACILLUS RHAMNOSUS GG 1 CAPSULE. PO SCH ×2 (08:58→21:26)
[2020-12-12] MEDS: POLYETHYLENE GLYCOL 3350 17 GM PACKET. PO SCH (08:59)
[2020-12-12] MEDS: NIACIN ER 250 MG CAPSULE.ER PO SCH ×2 (08:59→21:27)
[2020-12-12 11:00] VITALS: BP 142/55
[2020-12-12] MEDS: MICAFUNGIN 100 MG in IV DEXTROSE 5% 100ML 100 ML IV SCH (12:11)
--- NOTE | 2020-12-12 14:07 | NUR ---
SS following up with discharge planning. SS reviewed pt chart and discussed with pt RN. Pt is currently requiring oxygen at two liters nasal canula. Pt on IV Micafungin and IV Cefepime through today. Pt on PO Doxycycline. Pt is LTC resident from [place], ; fax [phone]. Clinical updates phoned and faxed to [facility]. SS will continue to follow for discharge planning.
[2020-12-12 15:00] VITALS: BP 115/49
[2020-12-12 19:00] VITALS: BP 137/61
[2020-12-12] MEDS: SENNOSIDES/DOCUSATE 8.6/50MG TABLET. PO SCH (21:00)
--- NOTE | 2020-12-12 21:12 | PN ---
DATE: 12/12/2020 DAILY PROGRESS NOTE LOCATION: He is in room 576. SUBJECTIVE: This 65-year-old male remains hospitalized with infection and acute kidney injury and gradually is improving. He denies any major complaints this morning. OBJECTIVE: VITAL SIGNS: Stable. He is afebrile. CHEST: Clear. HEART: Regular. ABDOMEN: Benign. EXTREMITIES: Right toe remains somewhat red and we will ask for Podiatry to see. Infectious Disease help is appreciated and see their plan that he could be dismissed tomorrow on p.o. antibiotics, which we will do. ASSESSMENT: Acute renal failure, abdominal pain, sepsis, status post cerebrovascular accident. PLAN: Continue present antibiotics per ID lead and Podiatry consult. MITZY DR: KRISTINE/gavin TID: [id number]
[2020-12-12] MEDS: MIRTAZAPINE 15 MG TABLET PO SCH (21:27)
[2020-12-12] MEDS: ATORVASTATIN CALCIUM 40 MG TABLET. PO SCH (21:27)
[2020-12-12 23:00] VITALS: BP 138/56
[2020-12-13] MEDS: IV NORMAL SALINE 1000ML BAG 1,000 ML IV SCH ×2 (00:23→09:12)
[2020-12-13 03:00] VITALS: BP 102/43
[2020-12-13 07:00] VITALS: BP 158/66
[2020-12-13] MEDS ORDERED: DOXY100T PO (07:55)
[2020-12-13] MEDS: POLYETHYLENE GLYCOL 3350 17 GM PACKET. PO SCH (09:00)
[2020-12-13] MEDS: LACTOBACILLUS RHAMNOSUS GG 1 CAPSULE. PO SCH (09:08)
[2020-12-13] MEDS: traMADol 50 MG TABLET PO SCH ×2 (09:08→14:20)
[2020-12-13] MEDS: ASPIRIN CHEWABLE 81 MG TABLET. PO SCH (09:08)
[2020-12-13] MEDS: RIVAROXABAN 10 MG TABLET. PO SCH (09:09)
[2020-12-13] MEDS: NIACIN ER 250 MG CAPSULE.ER PO SCH (09:09)
[2020-12-13] MEDS: DULoxetine HCL 30 MG CAPSULE.DR PO SCH (09:09)
[2020-12-13] MEDS: DOXYCYCLINE HYCLATE 100 MG TABLET PO SCH (09:09)
[2020-12-13] MEDS: PREGABALIN 50 MG CAPSULE PO SCH ×2 (09:09→14:20)
[2020-12-13] MEDS: busPIRone 5 MG TABLET. PO SCH ×2 (09:12→14:20)
--- NOTE | 2020-12-13 09:17 | PDOC ---
Infectious Disease Note Subjective: Subjective Pt without complaints except he feels tired today No acute issues per discussion with nursing staff Vital Signs: Vital Signs Vital Signs Date Time Temp Pulse Resp B/P (MAP) Pulse Ox O2 Delivery O2 Flow Rate FiO2 12/13/20 03:00 97.6 98 18 102/43 (62) 96 Nasal Cannula 2.0 97.6 Physical Exam: PHYSICAL EXAM GENERAL: Alert, awake male, well developed, well nourished, in no acute distress, nontoxic appearing. HEENT: Normocephalic, atraumatic. Anicteric. Dentition fair. No thrush. NECK: Supple, no JVD. LUNGS: Clear bilaterally. HEART: S1, S2. No murmurs. ABDOMEN: Soft, nontender, nondistended, no rebound or guarding. GENITOURINARY: No Monroe. Brief is in place. EXTREMITIES: No edema, no cyanosis. NEUROLOGIC: Hemiparesis, aphasia.alert awake MUSCULOSKELETAL: Right great toe swelling and erythema improved. Possible early developing paronychia Improving. No purulent drainage, dystrophic and mycotic right great toenail Medications: Inpatient Meds: Medications reviewed. Objective: Assessment: 1. Leukocytosis. Resolved 2. Pyuria. Urine culture with C. albicans. Could be colonization 3. H/O Cerebrovascular accident with hemiparesis. 4. Acute kidney injury. 5. Right great toe swelling, pain, possible early paronychia. 6. Mycotic toenails. 7.HYponatremia Plan: Plan of Care Continue doxycycline for 3 more days Patient is off cefepime and micafungin Local wound care Follow-up labs and cultures Patient may need podiatry consult for right great toe, can be done as outpatient for right great toe nail treatment Patient can be discharged fdc from ID standpoint Continue supportive care Discussed with nursing staff ELISSA SHAH MD Dec 13, 2020 09:16
[2020-12-13 11:00] VITALS: BP 143/56
[2020-12-13 15:00] VITALS: BP 114/62
--- NOTE | 2020-12-13 15:04 | SNU/HH DC ---
DISCHARGE ORDERS DISCHARGE INFORMATION: DISCHARGE DATE: Dec 13, 2020 FINAL DIAGNOSIS Problems Medical Problems: (1) Abdominal distension Status: Acute (2) Pyelonephritis Status: Acute (3) Sepsis Status: Acute CONDITION ON DISCHARGE: Stable CODE STATUS: Code Status: Full [facility]: SNF STAY <30 DAYS: Yes HOSPICE: HOSPICE: No HOSPICE EVAL & TREAT: No LTAC: ADMIT TO LTAC: No POST DISCHARGE ORDERS: ACTIVITY ORDERS: Activity as tolerated WEIGHT BEARING STATUS: As tolerated DIET AFTER DISCHARGE: Regular CHECKS AFTER DISCHARGE: CHECKS AFTER DISCHARGE: Check blood press - daily TREATMENT/EQUIPMENT ORDERS: ADAPTIVE EQUIPMENT NEEDED: Front wheeled walker RESPIRATORY EQUIPMENT NEEDED: Oxygen, Nebulizer Physical Therapy For: Evalulation/Treatment Occupational Therapy For: Evaluation/Treatment Speech Language Pathology For: Evaluation/Treatment DISCHARGE MEDICATIONS: Home Meds Active Scripts Doxycycline Hyclate (DOXYCYCLINE HYCLATE) 100 Mg Tablet, 100 MG PO BID for infection for 7 Days, #14 TAB Prov:JUANA LENTZ MD 12/13/20 Lactobacillus Rhamnosus Gg (CULTURELLE) 1 Each Cap.sprink, 1 CAP PO BID for SUPPLEMENT for 30 Days, #60 CAP Prov:CASE CRAIN MD 07/01/20 Reported Medications Ondansetron Hcl (ZOFRAN) 4 Mg Tablet, 4 MG PO PRN Q4HRS PRN for NAUSEA/VOMITING, TAB 12/07/20 Ergocalciferol (Vitamin D2) (Vitamin D2) 50 Mcg Tablet, 11779 UNITS PO QFR for SUPPLEMENT, TAB 12/07/20 Tramadol Hcl (TRAMADOL HCL) 50 Mg Tablet, 50 MG PO TID for RIGHT ARM PAIN, TAB 12/07/20 Mirtazapine (MIRTAZAPINE) 30 Mg Tablet, 30 MG PO QHS for DEPRESSION, TAB 12/07/20 Pregabalin (LYRICA) 100 Mg Capsule, 100 MG PO TID for right arm pain for 30 Days, CAP 12/07/20 Lisinopril (LISINOPRIL) 20 Mg Tablet, 20 MG PO DAILY for FOR HYPERTENSION, #30 TAB 0 Refills 12/07/20 Duloxetine Hcl (CYMBALTA) 30 Mg Capsule.dr, 30 MG PO BID for depression, CAP 12/07/20 Buspirone Hcl (BUSPIRONE HCL) 5 Mg Tablet, 5 MG PO TID for anxiety, TAB 12/07/20 Albuterol Sulfate (ALBUTEROL SULFATE NEB SOLN) 2.5 Mg/3 Ml Vial.neb, 2.5 MG NEB PRN Q4HRS PRN for SHORTNESS OF BREATH, EACH 0 Refills 12/07/20 Acetaminophen (ACETAMINOPHEN) 325 Mg Tablet, 2 TAB PO PRN Q4-6HRS PRN for pain o r fever for 24 Days, #100 TAB 0 Refills 07/26/20 Rivaroxaban (XARELTO) 10 Mg Tablet, 10 MG PO DAILY for HX PE, TAB 06/28/20 Sennosides/Docusate Sodium (Senna-Docusate Sodium Tablet) 1 Each Tablet, 2 TAB PO QHS for constipation, TAB 0 Refills 06/28/20 Polyethylene Glycol 3350 (MIRALAX) 17 Gm Powd.pack, 1 PACKET PO DAILY for constipation for 2 Days, #2 PACKET 0 Refills dissolve in water 06/28/20 Magnesium Hydroxide (MILK OF MAGNESIA) 400 Mg/5 Ml Oral.susp, 400 MG PO DAILY PRN for bowel care, MISC 06/28/20 Atorvastatin Calcium (ATORVASTATIN CALCIUM) 40 Mg Tablet, 40 MG PO HS for FOR CHOLESTEROL, #30 TAB 0 Refills 06/28/20 Aspirin (Children's Aspirin) 81 Mg Tab.chew, 81 MG PO DAILY for prophylaxis, TAB.CHEW 06/28/20 Discontinued Reported Medications Niacin (Inositol Niacinate) (NIACIN 500 MG CAPSULE) 500 Mg Capsule, 1000 MG PO BID for HYPERLIPIDEMIA, CAP 12/07/20 JUANA LENTZ MD Dec 13, 2020 15:04
[2020-12-13] MEDS ORDERED: ERGOCALCIFEROL (VITAMIN D2) 50,000 UNIT CAPSULE. PO SCH (16:00)
--- NOTE | 2020-12-13 16:43 | NUR ---
Discharge Note: GRISELDA ABDALLA [facility] Discharge instructions and discharge home medications reviewed with Kyleigh anderson Vonore and a copy given. All questions have been answered and understanding verbalized. The following instructions were given: continue Doxycycline for three more days. Discontinued lines and drains: Peripheral IV intact. Patient discharged to [facility] via [facility]
--- NOTE | 2020-12-13 19:06 | DS ---
DATE OF DISCHARGE: 12/13/2020 PRIMARY DIAGNOSIS: Sepsis. ADDITIONAL DIAGNOSES: 1. Depressed mental status. 2. Abdominal pain. 3. Acute kidney injury. 4. Status post cerebrovascular accident with aphasia and right hemiparesis. CHIEF COMPLAINT AND HISTORY OF PRESENT ILLNESS: This 65-year-old long term resident admitted with acute renal failure with creatinine up to 2.5 and not feeling or acting like himself. Initial urine was consistent with a urinary tract infection. He was started on antibiotics and treated. ID followed along through the stay adjusting antibiotics around. He was improving on a daily basis with his leukocytosis, resolving, his acute kidney injury, resolving. He did have some right great toe swelling with possible early paronychia and will see Podiatry as an outpatient, although it did not appear to be the source of the infection, his abdominal pain present on admission, resolved. He went back to his normal mental status and was felt ready for dismissal on the and this was accomplished. DISPOSITION: The patient is discharged back to the long term on his prehospitalization routine with the addition of doxycycline b.i.d. for the next [address]: Kannan TID: [id number]
== END 2020-12-13 16:43 | DRG 871 ==
LOC: ER 11:52 → 5 SOUTH 15:29
PROVIDERS: ADMIT Family Medicine; ATTEND Family Medicine
DX: A41.9 Sepsis, unspecified organism (principal); N17.0 Acute kidney failure with tubular necrosis; E87.1 Hypo-osmolality and hyponatremia; B37.49 Other urogenital candidiasis; I69.351 Hemiplegia and hemiparesis following cerebral infarction affecting right dominant side; E78.00 Pure hypercholesterolemia, unspecified; E78.5 Hyperlipidemia, unspecified; I12.9 Hypertensive chronic kidney disease with stage 1 through stage 4 chronic kidney disease, or unspecified chronic kidney disease; I69.320 Aphasia following cerebral infarction; J44.9 Chronic obstructive pulmonary disease, unspecified; K76.0 Fatty (change of) liver, not elsewhere classified; N18.9 Chronic kidney disease, unspecified; F32.A Depression, unspecified; R91.8 Other nonspecific abnormal finding of lung field; Z88.0 Allergy status to penicillin; B35.1 Tinea unguium; L03.031 Cellulitis of right toe
CPT/HCPCS: 36415; 70450; 71045; 73660; 74176; 80048; 80053; 80202; 81001; 82565; 83605; 84484; 85025; 87077; 87086; 93005; 96374; J0692; J2248; J3370; J7030; J7040; J7060; 99285-25; G0378